=== PATIENT | male | born 1980 | race Caucasian/White ===

== ENCOUNTER 2017-06-30 08:45 | Emergency (ER) | payer BC ==
--- OUTSIDE RECORDS SUMMARY | 2017-06-30 08:48 | XMS REPORT | Clinical Summary ---
:1980 Author Organization [facility] Address [address] [place] [address] Care Team Providers Name Role Phone Jose Rafael Campbell MD Primary Care Provider Allergies Active Allergy Reactions Severity Noted Date Comments Clindamycin Rash Low 03/08/2017 Phytonadione (Vitamin K1) Swelling, Other (See Low 03/08/2017 tachycardia Comments) Current Medications Prescription Sig. Disp. Refills Start Date End Date Status riFAXimin (XIFAXAN) Take 550 mg by Active 550 mg tablet mouth 2 (two) times a day. ursodiol (ACTIGALL) Take 300 mg by Active 300 mg capsule mouth 2 (two) times a day. calcium carbonate Chew 1 tablet 2 Active (TUMS) 200 mg (two) times a calcium (500 mg) day as needed chewable tablet for indigestion or heartburn. furosemide (LASIX) Take 40 mg by Active 40 mg tablet mouth 2 (two) times a day. hydrOXYzine Take 25 mg by Active (ATARAX) 25 MG mouth every 6 tablet (six) hours as needed for itching. insulin ASPART Inject 15 Units Active protamine and under the skin 2 insulin ASPART (two) times a (NovoLOG Mix 70-30 day before FlexPen) 100 meals. unit/mL (70-30) insulin pen pantoprazole Take 40 mg by Active (PROTONIX) 40 MG EC mouth daily. tablet lactulose 10 Take 20 g by Active gram/15 mL (15 mL) mouth 2 (two) solution times a day. insulin lispro Inject 0-7 Units Active (HumaLOG) 100 under the skin 3 unit/mL injection (three) times a day before meals. Per sliding scale predniSONE Take 5 mg by Active (DELTASONE) 5 mg mouth daily. tablet pentoxifylline Take 400 mg by Active (TRENTal) 400 mg CR mouth 3 (three) tablet times a day with meals. spironolactone Take 200 mg by Active (ALDACTONE) 100 MG mouth daily. tablet cyanocobalamin Take 1,000 mcg 01/05/20 Discontinued (vitamin B-12) 1000 by mouth daily. 17 MCG tablet folic acid Take 400 mcg by 01/05/20 Discontinued (FOLVITE) 400 MCG mouth daily. 17 tablet spironolactone Take 25 mg by 01/05/20 Discontinued (ALDACTONE) 25 MG mouth 2 (two) 17 tablet times a day. spironolactone Take 1 tablet 60 tablet 0 01/04/2017 01/05/20 Discontinued (ALDACTONE) 25 MG (25 mg total) by 17 tablet mouth 2 (two) times a day for 30 days. As needed for swelling thiamine 100 MG Take 1 tablet 30 tablet 1 01/04/2017 01/05/20 Discontinued tablet (100 mg total) 17 by mouth daily for 30 days. lactulose 20 Take 15 mL (10 g 500 mL 3 01/04/2017 01/05/20 Discontinued gram/30 mL solution total) by mouth 17 3 (three) times a day as needed (CONFUSION) for up to 30 days. As needed to target 2 stools per day zinc sulfate Take 1 capsule 30 capsule 1 01/04/2017 02/04/20 (ZINCATE) 220 (50) (220 mg total) 17 mg capsule by mouth daily for 30 days. May use over the counter Zinc ciprofloxacin HCl Take 1 tablet 14 tablet 0 01/04/2017 01/12/20 (CIPRO) 500 MG (500 mg total) 17 tablet by mouth 2 (two) times a day for 7 days. folic acid Take 1 tablet 30 tablet 0 01/04/2017 02/04/20 (FOLVITE) 400 MCG (400 mcg total) 17 tablet by mouth daily for 30 days. May use OTC lactulose 20 Take 15 mL (10 g 500 mL 3 01/04/2017 02/04/20 gram/30 mL solution total) by mouth 17 3 (three) times a day as needed (CONFUSION) for up to 30 days. As needed to target 2 stools per day spironolactone Take 1 tablet 60 tablet 0 01/04/2017 02/04/20 (ALDACTONE) 25 MG (25 mg total) by 17 tablet mouth 2 (two) times a day for 30 days. As needed for swelling thiamine 100 MG Take 1 tablet 30 tablet 1 01/04/2017 02/04/20 tablet (100 mg total) 17 by mouth daily for 30 days. May use OTC cyanocobalamin Take 1 tablet 30 tablet 0 01/04/2017 02/04/20 (vitamin B-12) 1000 (1,000 mcg 17 MCG tablet total) by mouth daily for 30 days. May use OTC spironolactone Take 25 mg by 02/28/20 Discontinued (ALDACTONE) 25 MG mouth 2 (two) 17 tablet times a day. calcium carbonate Chew 1 tablet 02/27/2017 03/20/19 Discontinued (TUMS) 200 mg (500 mg total) 2 18 calcium (500 mg) (two) times a chewable tablet day as needed for heartburn for up to 30 days. hydrOXYzine Take 1 tablet 30 tablet 1 02/27/2017 03/20/19 Discontinued (ATARAX) 25 MG (25 mg total) by 18 tablet mouth every 6 (six) hours as needed for itching for up to 30 days. lactulose 20 Take 30 mL (20 g 1800 mL 0 02/27/2017 03/20/19 Discontinued gram/30 mL solution total) by mouth 18 2 (two) times a day for 30 days. pentoxifylline Take 1 tablet 90 tablet 0 02/27/2017 03/18/19 Discontinued (TRENTal) 400 mg CR (400 mg total) 18 tablet by mouth 3 (three) times a day with meals for 30 days. predniSONE Take 3 tablets 90 tablet 0 02/28/2017 03/18/19 Discontinued (DELTASONE) 20 mg (60 mg total) by 18 tablet mouth daily for 30 days. pantoprazole Take 1 tablet 30 tablet 0 02/27/2017 03/20/19 Discontinued (PROTONIX) 40 MG EC (40 mg total) by 18 tablet mouth daily for 30 days. white Apply topically 57 g 0 02/27/2017 02/28/20 Discontinued petrolatum-mineral as needed (dry, 17 oil (EUCERIN) cream itchy skin) for topical cream up to 30 days. (can buy from [id number] ) white Apply topically 57 g 0 02/27/2017 03/29/19 petrolatum-mineral as needed (dry, 18 oil (EUCERIN) cream itchy skin) for topical cream up to 30 days. (can buy from [id number] ) furosemide (LASIX) Take 40 mg by 03/18/19 Discontinued 40 mg tablet mouth daily. 18 spironolactone Take 100 mg by 03/18/19 Discontinued (ALDACTONE) 100 MG mouth daily. 18 tablet predniSONE Take 1 tablet (5 30 tablet 0 03/19/2017 03/20/19 Discontinued (DELTASONE) 5 mg mg total) by 18 tablet mouth daily for 30 days. pentoxifylline Take 1 tablet 90 tablet 0 03/18/2017 03/20/19 Discontinued (TRENTal) 400 mg CR (400 mg total) 18 tablet by mouth 3 (three) times a day with meals for 30 days. insulin NPH Inject 12 Units 10 mL 12 03/18/2017 03/18/19 Discontinued (HumuLIN-N) 100 under the skin 18 unit/mL injection nightly for 30 days. Hold dose for glucose < 90 insulin NPH Inject 20 Units 10 mL 12 03/18/2017 03/18/19 Discontinued (HumuLIN-N) 100 under the skin 18 unit/mL injection daily before breakfast for 30 days. Hold dose for glucose < 90 insulin lispro Inject 0-7 Units 10 mL 12 03/18/2017 03/20/19 Discontinued (HumaLOG) 100 under the skin 3 18 unit/mL injection (three) times a day with meals for 30 days. Follow sliding scale regimen furosemide (LASIX) Take 1 tablet 60 tablet 0 03/18/2017 03/20/19 Discontinued 40 mg tablet (40 mg total) by 18 mouth 2 (two) times a day for 30 days. spironolactone Take 2 tablets 60 tablet 0 03/19/2017 03/20/19 Discontinued (ALDACTONE) 100 MG (200 mg total) 18 tablet by mouth daily for 30 days. insulin 70/30 NPH Inject 15 units 10 mL 3 03/18/2017 03/18/19 Discontinued and regular human twice a with 18 (NovoLIN 70/30) 100 dinner. unit/mL (70-30) injection insulin Inject twice a 100 each 2 03/18/2017 03/20/19 Discontinued syringe-needle day. 18 U-100 (BD INSULIN SYRINGE ULTRA-FINE) 1 mL 31 gauge x 5/16 syringe traMADol (ULTRAM) Take 2 tablets 30 tablet 0 03/18/2017 04/17/19 50 mg tablet (100 mg total) 18 by mouth every 6 (six) hours as needed for moderate pain or severe pain for up to 30 days. insulin ASPART Inject 15 units 5 pen 1 03/18/2017 03/20/19 Discontinued protamine and with breakfast 18 insulin ASPART and 15 units (NovoLOG Mix 70-30 with dinner FlexPen) 100 unit/mL (70-30) insulin pen pen needle, Inject twice a 100 each 1 03/18/2017 03/20/19 Discontinued diabetic (PEN day 18 NEEDLE) 31 gauge x 5/16" needle Active Problems Problem Noted Date Bronchospasm 03/20/2017 Pre-diabetes 03/11/2017 Essential hypertension 03/11/2017 Hepatic encephalopathy 03/11/2017 Fluid overload 03/08/2017 Severe alcohol dependence 02/21/2017 Nicotine use disorder 02/21/2017 Marijuana use 02/21/2017 Hyperbilirubinemia 02/20/2017 Acute liver failure 02/20/2017 Alcoholic cirrhosis of liver with ascites 01/02/2017 Disorder of liver 01/02/2017 Encounters Date Type Specialty Care Team Description 05/23/2017 Hospital Radiology Jeanzhanna Eleazar Alcoholic cirrhosis of liver without ascites; Encounter MD Deisi Portal hypertension; Alcoholic hepatic failure without coma; Localized edema; Bleeding esophageal varices, unspecified esophageal varices type 05/21/2017 Procedure Pass Radiology 05/12/2017 Transcribe Orders Access LinoEleazar Alcoholic cirrhosis of liver without ascites (Primary Dx); MD Deisi Portal hypertension; Alcoholic hepatic failure without coma; Localized edema; Bleeding esophageal varices, unspecified esophageal varices type 03/20/2017 [facility] Internal Rambo Jennings Bronchospasm (Primary Dx); Encounter Medicine DO Mindy Bronchitis; Chente Taylor, Cirrhosis of liver without ascites, unspecified hepatic cirrhosis type; Fever, unspecified fever cause 03/08/2017 [facility], En[facility] Medicine MD Oliver 03/18/2017 Chente Taylor MD 02/19/2017 Hospital General Internal Aguilar Anderson Hyperbilirubinemia ( Primary Dx); - Encounter Medicine DO YUE Ricks abdominal pain; 02/27/2017 Stanley, Alcoholic cirrhosis of liver without ascites MD Gus Jeff Satishchandra, MD 02/14/2017 Hospital Radiology Eleazar Huynh Abnormality of alpha- fetoprotein; Encounter MD Deisi Alcoholic cirrhosis of liver without ascites 02/14/2017 Procedure Pass Radiology 02/14/2017 Transcribe Orders Radiology Alicia Socorro Abnormality of alpha- fetoprotein (Primary Dx); Alcoholic cirrhosis of liver without ascites 01/03/2017 Procedure Pass General Internal Medicine 01/02/2017 Emergency General Internal , Yessi-Te Cirrhosis of liver with - Medicine MD Daniel ascites, unspecified 01/04/2017 Gus, hepatic cirrhosis type MD Oliver (Primary Dx) after 06/29/2016 Social History Tobacco Use Types Packs/Day Years Used Date Current Some Day Smoker Cigarettes 0.5 Smokeless Tobacco: Current User Tobacco Cessation: Ready to Quit: Yes; Counseling Given: Yes Comments: patient verbalized he's trying to reduce it everyday Alcohol Use Drinks/Week oz/Week Comments No last drink was week before labor day Sex Assigned at Date Recorded Not on file Last Filed Vital Signs Vital Sign Reading Time Taken Blood Pressure 142/68 03/20/2017 4:05 PM [employer] Pulse 95 03/20/2017 4:05 PM [employer] Temperature 36.7 C (98.1 F) 03/20/2017 4:05 PM [employer] Respiratory Rate 18 03/20/2017 4:05 PM [employer] Oxygen Saturation 98% 03/20/2017 4:05 PM [employer] Inhaled Oxygen Concentration - - Weight 90.7 kg (200 lb) 05/23/2017 6:23 PM CDT Height 185.4 cm (6' 1") 05/23/2017 6:23 PM CDT Body Mass Index 26.39 05/23/2017 6:23 PM CDT Plan of Treatment Health Maintenance Due Date Last Done Comments INFLUENZA VACCINE 10/01/2017 Results MRI Abdomen W Wo Contrast (05/23/2017 6:44 PM)Only the most recent of3 resultswithin the time period is included. Specimen Performing Laboratory [facility] [address] [place] [address] Narrative EXAMINATION:MRI ABDOMEN W WO CONTRAST CLINICAL HISTORY:K70.30 Alcoholic cirrhosis of liver without ascites, K76.6 Portal hypertension, K70.30K76.6K70.40R60.0I85.01 TECHNIQUE: Multiplanar multisequence MR images of the abdomen were obtained pre - and post dynamic intravenous administration of Eovist.. COMPARISON:MRI abdomen, 02/14/2017 IMPRESSION: 1.Liver is heterogeneous in enhancement pattern related to fibrosis and chronic liver disease. The lesions of concern described previously are again noted. The 3.2 cm nodule just cranial to the gallbladder fossa demonstrates slight hypointensity on the 20 minute delayed images. It is stable in size from prior. Findings indicate a mixture of functioning and nonfunctioning hepatocytes. 2.The 3.6 cm nodule anterior to the gallbladder is stable in size, and image shows fairly uniform isointensity, as does the 3 cm nodule posterior to the gallbladder. No other discrete nodules are identified. 3.Evaluation of the other abdominal organs is limited, as Eovist is a hepatocyte specific contrast agent, indicated only for liver imaging. Within this limitation, bile ducts, pancreas, abdominal aorta, circumaortic left renal vein and kidneys demonstrates nothing unusual. 4.Small amount of layering sludge in the gallbladder, can be better assessed with ultrasound. 5.No free fluid in the abdomen. Upper normal periaortic lymph nodes are likely reactive. Mild mesenteric edema likely related to portal hypertension from the chronic liver disease. As well, the spleen is mildly enlarged, otherwise grossly unremarkable. 6.Visualized bones show no suspicious lesion. SUMMARY: The nodules described previously are all stable in size. The nodule superior to the gallbladder fossa contains a mixed of functioning and nonfunctioning hepatocytes, and is still considered LI-RADS 4, though the other nodules are now considered LI-RADS 3. [facility]-[id number] Procedure Note [facility], Radiology Results Incoming - 05/23/2017 9:08 PM CDT EXAMINATION: MRI ABDOMEN W WO CONTRAST CLINICAL HISTORY: K70.30 Alcoholic cirrhosis of liver without ascites, K76.6 Portal hypertension, K70.30 K76.6 K70.40 R60.0 I85.01 TECHNIQUE: Multiplanar multisequence MR images of the abdomen were obtained pre - and post dynamic intravenous administration of Eovist. . COMPARISON: MRI abdomen, 02/14/2017 IMPRESSION: 1. Liver is heterogeneous in enhancement pattern related to fibrosis and chronic liver disease. The lesions of concern described previously are again noted. The 3.2 cm nodule just cranial to the gallbladder fossa demonstrates slight hypointensity on the 20 minute delayed images. It is stable in size from prior. Findings indicate a mixture of functioning and nonfunctioning hepatocytes. 2. The 3.6 cm nodule anterior to the gallbladder is stable in size, and image shows fairly uniform isointensity, as does the 3 cm nodule posterior to the gallbladder. No other discrete nodules are identified. 3. Evaluation of the other abdominal organs is limited, as Eovist is a hepatocyte specific contrast agent, indicated only for liver imaging. Within this limitation, bile ducts, pancreas, abdominal aorta, circumaortic left renal vein and kidneys demonstrates nothing unusual. 4. Small amount of layering sludge in the gallbladder, can be better assessed with ultrasound. 5. No free fluid in the abdomen. Upper normal periaortic lymph nodes are likely reactive. Mild mesenteric edema likely related to portal hypertension from the chronic liver disease. As well, the spleen is mildly enlarged, otherwise grossly unremarkable. 6. Visualized bones show no suspicious lesion. SUMMARY: The nodules described previously are all stable in size. The nodule superior to the gallbladder fossa contains a mixed of functioning and nonfunctioning hepatocytes, and is still considered LI-RADS 4, though the other nodules are now considered LI-RADS 3. [facility]-[id number] POC glucose (03/20/2017 5:38 PM)Only the most recent of47 resultswithin the time period is included. Component Value Ref Range POC glucose 134 (H) 65 - 99 mg/dL Comment: [facility] Notified RN Meter ID: [id number] Drapery Cutter: Angie Allen Specimen Performing Laboratory [facility] DEPARTMENT OF PATHOLOGY AND GENOMIC MEDICINE [address] [place] [phone] XR Chest 1 Vw Portable (03/20/2017 3:22 PM)Only the most recent of2 resultswithin the time period is included. Specimen Performing Laboratory [facility] [address] [place] [address] Narrative EXAMINATION:XR CHEST 1 VW PORTABLE CLINICAL HISTORY:Cough COMPARISON:March 08, 2017 single view chest IMPRESSION: Unremarkable single view chest The lungs are clear. The heart is not enlarged. The bony structures are within normal limits. [id number] Procedure Note [facility], Radiology Results Incoming - 03/20/2017 3:27 PM [employer]ATE [employer] EXAMINATION: XR CHEST 1 VW PORTABLE CLINICAL HISTORY: Cough COMPARISON: March 08, 2017 single view chest IMPRESSION: Unremarkable single view chest The lungs are clear. The heart is not enlarged. The bony structures are within normal limits. [id number] Respiratory pathogen panel (03/20/2017 2:23 PM)Only the most recent of3 resultswithin the time period is included. Component Value Ref Range Respiratory pathogen panel Negative for all pathogens tested: Negative for Adenovirus Negative for Coronavirus HKU1 Negative for Coronavirus NL63 Negative for Coronavirus 229E Negative for Coronavirus OC43 Negative for Human Metapneumovirus Negative for Rhinovirus/Enterovirus Negative for Influenza A Negative for Influenza A/H1 Negative for Influenza A/H3 Negative for Influenza A/H1-2009 Negative for Influenza B Negative for Parainfluenza Virus 1 Negative for Parainfluenza Virus 2 Negative for Parainfluenza Virus 3 Negative for Parainfluenza Virus 4 Negative for Respiratory Syncytial Virus Negative for Bordetella pertussis Negative for Chlamydophila pneumoniae Negative for Mycoplasma pneumoniae This real-time PCR assay detects the presence of nucleic acids (RNA or DNA) for the respiratory pathogens listed. A result of "Not-detected" does not exclude the possibility of the presence of one or more pathogens at concentrations less than the detectable limits of the assay. Comment: Specimen Information Specimen Source: Nares Specimen Site: Left Specimen Performing Laboratory Nares - Left [facility] DEPARTMENT OF PATHOLOGY AND GENOMIC MEDICINE [address] [place] [id number] Estimated GFR (03/20/2017 2:23 PM)Only the most recent of24 resultswithin the time period is included. Component Value Ref Range GFR Non Af Amer >90 mL/min/1.73 m2 GFR Af Amer >90 mL/min/1.73 m2 Comment: Chronic kidney disease: <60 mL/min/1.73m2 Kidney failure: <15 mL/min/1.73m2 The estimated GFR is calculated from the IDMS-traceable Modification of Diet in Renal Disease Equation. The accuracy of the calculation is poor when the creatinine is normal. Calculated values >90 mL/min/1.73m2 are not reported. This equation has not been validated in children (<18 years), women, the elderly (>70 years), or ethnic groups other than Caucasians and Americans. Specimen Performing Laboratory Plasma specimen [facility] DEPARTMENT OF PATHOLOGY AND GENOMIC MEDICINE [address] [place] [id number] Partial thromboplastin time, activated (03/20/2017 2:23 PM)Only the most recent of2 resultswithin the time period is included. Component Value Ref Range PTT 46.4 (H) 23.0 - 36.0 sec Comment: PTT therapeutic range for unfractionated heparin is 61.0-112.0 seconds which corresponds to Anti-Xa 0.3-0.7 U/ml. Specimen Performing Laboratory Blood [facility] DEPARTMENT OF PATHOLOGY AND [facility] MEDICINE [address] [place] [phone] Prothrombin time with INR (03/20/2017 2:23 PM)Only the most recent of23 resultswithin the time period is included. Component Value Ref Range Prothrombin time 17.5 (H) 12.0 - 15.0 sec INR 1.4 Comment: The International Normalized Ratio (INR) is a therapeutic monitoring tool for patients who are stable on oral anticoagulant therapy. An INR of 2.0-3.0 is suggested for deep vein thrombosis/pulmonary embolism. Specimen Performing Laboratory Blood [facility] DEPARTMENT OF PATHOLOGY AND GENOMIC MEDICINE [address] [place] [phone] CBC with platelet and differential (03/20/2017 2:23 PM)Only the most recent of24 resultswithin the time period is included. Component Value Ref Range WBC 12.65 (H) 4.50 - 11.00 k/uL RBC 3.04 (L) 4.40 - 6.00 m/uL HGB 10.7 (L) 14.0 - 18.0 g/dL HCT 29.2 (L) 41.0 - 51.0 % MCV 96.1 82.0 - 100.0 fL MCH 35.2 (H) 27.0 - 34.0 pg MCHC 36.6 31.0 - 37.0 g/dL RDW - SD 68.2 (H) 37.0 - 55.0 fL MPV 9.8 8.8 - 13.2 fL Platelet count 101 (L) 150 - 400 k/uL Nucleated RBC 0.00 /100 WBC Neutrophils 70.9 (H) 39.0 - 69.0 % Lymphocytes 15.8 (L) 25.0 - 45.0 % Monocytes 10.0 0.0 - 10.0 % Eosinophils 2.5 0.0 - 5.0 % Basophils 0.3 0.0 - 1.0 % Immature granulocytes 0.5Comment: "Immature granulocytes" 0.0 - 1.0 % (promyelocytes, myelocytes, metamyelocytes) Specimen Performing Laboratory Blood [facility] DEPARTMENT OF PATHOLOGY AND [facility] MEDICINE [address] [place] [phone] Influenza antigen (03/20/2017 2:23 PM) Component Value Ref Range Influenza antigen Negative for Influenza A/B antigen. Comment: Specimen Information Specimen Source: Nares Specimen Site: Left Specimen Performing Laboratory Nares - Left [facility] DEPARTMENT OF PATHOLOGY AND GENOMIC MEDICINE [address] [place] [phone] Lipase level (03/20/2017 2:23 PM)Only the most recent of3 resultswithin the time period is included. Component Value Ref Range Lipase 89 (H) 13 - 60 U/L Specimen Performing Laboratory Plasma specimen [facility] DEPARTMENT OF PATHOLOGY AND [address] [address] Alcohol level, blood (03/20/2017 2:23 PM)Only the most recent of5 resultswithin the time period is included. Component Value Ref Range Alcohol 21.7 mg/dL Comment: Normal None Detected Legal Intoxication in [place]80 mg/dL (0.08%) - Whole Blood Toxic [id number] mg/dL (0.2%) Potentially Hhyun207 - 500 mg/dL (0.35 - 0.5%) Alcohol percent 0.022 % Specimen Performing Laboratory Plasma specimen [facility] DEPARTMENT OF PATHOLOGY AND [facility] MEDICINE [address] [place] [phone] Comprehensive metabolic panel (03/20/2017 2:23 PM)Only the most recent of16 resultswithin the time period is included. Component Value Ref Range Sodium 133 (L) 135 - 148 mEq/L Potassium 3.5 3.5 - 5.0 mEq/L Chloride 92 (L) 98 - 112 mEq/L CO2 25 24 - 31 mEq/L Anion gap 16 (H) 7 - 15 mEq/L Comment: Starting from June , anion gap calculation no longer incorporates potassium. Please note the change. BUN 20 6 - 20 mg/dL Creatinine 0.9 0.7 - 1.2 mg/dL Glucose 175 (H) 65 - 99 mg/dL Calcium 10.2 8.3 - 10.2 mg/dL Protein 7.3 6.3 - 8.3 g/dL Comment: [place] 4.6-7.0 g/dL 1 week 4.4-7.6 g/dL 7 months-1year5.1-7.3 g/dL 1-2 years5.6-7.5 g/dL >3 years6.0-8.0 g/dL 18-150 6.3-8.3 g/dL Albumin 3.8 3.5 - 5.0 g/dL A/G ratio 1.1 0.7 - 3.8 Alkaline phosphatase 193 (H) 40 - 129 U/L AST 79 (H) 10 - 50 U/L ALT 72 (H) 5 - 50 U/L Total bilirubin 13.1 (H) 0.0 - 1.2 mg/dL Specimen Performing Laboratory Plasma specimen [facility] DEPARTMENT OF PATHOLOGY AND [facility] MEDICINE [address] [place] [phone] Blood culture, aerobic & anaerobic (03/20/2017 2:20 PM)Only the most recent of7 resultswithin the time period is included. Component Value Ref Range Blood culture isolate No growth after 5 days of incubation. Comment: Specimen Information Specimen Source: Blood Specimen Site: Forearm, right Specimen Performing Laboratory Blood - Forearm, right [facility] DEPARTMENT OF PATHOLOGY AND GENOMIC MEDICINE [address] [place] [id number] Manual differential (03/18/2017 7:52 AM)Only the most recent of4 resultswithin the time period is included. Component Value Ref Range Manual differential PERFORMED Neutrophils 67.0 39.0 - 69.0 % Lymphocytes 22.0 (L) 25.0 - 45.0 % Monocytes 7.0 0.0 - 10.0 % Eosinophils 4.0 0.0 - 5.0 % Basophils 0.0 0.0 - 1.0 % Metamyelocytes 0 % Promyelocytes 0 % Platelet slide review Decreased (A) Toxic granulation Slight Anisocytosis Moderate Polychromasia Moderate Target cells Moderate (A) Spherocytes Occasional Ovalocytes Moderate Specimen Performing Laboratory [facility] DEPARTMENT OF PATHOLOGY AND GENOMIC MEDICINE [address] [place] [phone] Phosphorus level (03/18/2017 4:00 AM)Only the most recent of15 resultswithin the time period is included. Component Value Ref Range Phosphorus 3.9 2.4 - 4.5 mg/dL Specimen Performing Laboratory Plasma specimen [facility] DEPARTMENT OF PATHOLOGY AND [facility] [address] [place] [id number] Magnesium level (03/18/2017 4:00 AM)Only the most recent of15 resultswithin the time period is included. Component Value Ref Range Magnesium 1.8 1.6 - 2.6 mg/dL Specimen Performing Laboratory Plasma specimen [facility] [place] [address] Smear review (03/17/2017 5:21 AM)Only the most recent of9 resultswithin the time period is included. Component Value Ref Range Platelet slide review Decreased (A) Anisocytosis Moderate Target cells Moderate (A) Spherocytes Occasional Toxic granulation Slight Specimen Performing Laboratory [facility] [place] [address] US Abdominal Limited (03/14/2017 3:45 PM)Only the most recent of3 resultswithin the time period is included. [place]imen [place] [address] Narrative EXAMINATION: US ABDOMINAL LIMITED CLINICAL HISTORY: rule out the presence of ascites COMPARISON: Limited abdominal ultrasound, obtained on 03/09/2017. TECHNIQUE: Multiple grayscale images were obtained of the abdomen to evaluate for ascites.. FINDINGS: Ascites was not discretely identified. IMPRESSION: No significant ascites. No significant change. [id number] Procedure Note Interface, Radiology Results Incoming - 03/14/2017 4:05 PM CORPORATE RECRUITER EXAMINATION: US ABDOMINAL LIMITED CLINICAL HISTORY: rule out the presence of ascites COMPARISON: Limited abdominal ultrasound, obtained on 03/09/2017. TECHNIQUE: Multiple grayscale images were obtained of the abdomen to evaluate for ascites.. FINDINGS: Ascites was not discretely identified. IMPRESSION: No significant ascites. No significant change. [id number] XR Abdomen 1 Vw (03/13/2017 5:48 PM) [place]imen [place] [address] Narrative EXAMINATION:XR ABDOMEN 1 VW CLINICAL HISTORY:ABDOMINAL PAIN, Distention, Vomiting COMPARISON:None. IMPRESSION: 1.A moderate amount stool is present within the colon possibly relating to constipation. 2.The bowel gas pattern is nonspecific. 3.There is no evidence for free intraperitoneal air. 4.Osseous structures are intact. [facility]-[id number] Procedure Note Hm Interface, Radiology Results Incoming - 03/13/2017 6:23 PM CORPORATE RECRUITER EXAMINATION: XR ABDOMEN 1 VW CLINICAL HISTORY: ABDOMINAL PAIN, Distention, Vomiting COMPARISON: None. IMPRESSION: 1. A moderate amount stool is present within the colon possibly relating to constipation. 2. The bowel gas pattern is nonspecific. 3. There is no evidence for free intraperitoneal air. 4. Osseous structures are intact. [facility]-[id number] Hemoglobin A1c (03/11/2017 5:05 AM) Component Value Ref Range Hemoglobin A1C 6.2 (H) 4.0 - 5.6 % Comment: HbA1c cutoffs for diagnosing diabetes: 4.0% - 5.6%=normal 5.7% - 6.4%=increased risk for diabetes (prediabetes) >=6.5%=diabetes Goals for glycemic control (ADA 2016) < 7.0%Target for non adults with diabetes. More or less stringent targets may be appropriate for individual patients. <7.5% Target for Children and adolescents with type 1 diabetes. Specimen Performing Laboratory [facility] DEPARTMENT OF PATHOLOGY AND GENOMIC MEDICINE [address] [place] [address] Hepatic function panel (03/11/2017 5:05 AM)Only the most recent of8 resultswithin the time period is included. Component Value Ref Range Albumin 3.9 3.5 - 5.0 g/dL Total bilirubin 14.5 (H) 0.0 - 1.2 mg/dL Bilirubin direct 8.8 (H) 0.0 - 0.3 mg/dL Alkaline phosphatase 270 (H) 40 - 129 U/L Protein 7.2 6.3 - 8.3 g/dL Comment: 4.6-7.0 g/dL 1 week 4.4-7.6 g/dL 7 months-1year5.1-7.3 g/dL 1-2 years5.6-7.5 g/dL >3 years6.0-8.0 g/dL 18-150 6.3-8.3 g/dL ALT 109 (H) 5 - 50 U/L AST 94 (H) 10 - 50 U/L Specimen Performing Laboratory Plasma specimen [facility] DEPARTMENT OF PATHOLOGY AND GENOMIC MEDICINE [address] [place] [address] Basic metabolic panel (03/11/2017 5:05 AM)Only the most recent of8 resultswithin the time period is included. Component Value Ref Range Sodium 140 135 - 148 mEq/L Potassium 3.8 3.5 - 5.0 mEq/L Chloride 96 (L) 98 - 112 mEq/L CO2 25 24 - 31 mEq/L Anion gap 19 (H) 7 - 15 mEq/L Comment: Starting from June , anion gap calculation no longer incorporates potassium. Please note the change. BUN 32 (H) 6 - 20 mg/dL Creatinine 1.1 0.7 - 1.2 mg/dL Glucose 286 (H) 65 - 99 mg/dL Calcium 9.3 8.3 - 10.2 mg/dL Specimen Performing Laboratory Plasma specimen [facility] DEPARTMENT OF PATHOLOGY AND GENOMIC MEDICINE [address] [place] [address] PV duplex venous lower extremity (03/10/2017 12:57 PM) Specimen Performing Laboratory [facility] [address] [place] [address] Narrative Vascular Ultrasound Laboratory Lower Extremity Venous Report [address] [place] [address] Pat.Name:Cheri VELEZ.ID:[id number] .Date: 03/10/2017 Refer.MD:OLIVER RICHARD MD Exam Time: 12:15:00 PM Study Type:LE Venous DOBAge:1980,36YSex: MALE Sonogrphr: Nataliia Winslow RDCS, RVT Pat. Stat.:Inpatient Room:[address] TapeVol: ED, CPT - 4: 16452 Echo Event ID:[id number] Order ID:[id number] Reason for Study:Edema History / Clinical:Liver cirrhosis, Ascites, Leg edema Race:C SUMMARY: DUPLEX SCAN OBSERVATIONS Deep VeinsSuperficial Veins RightLeft RightLeft GSV (prox) PulsatilePulsatile CFV Pulsatile Pulsatile (above knee) Femoral Pulsatile Pulsatile GSV (dist) Pulsatile Pulsatile Profunda Pulsatile Pulsatile (below knee) Popliteal Pulsatile Pulsatile PT (prox) Pulsatile PulsatileSSV Pulsatile Pulsatile PT (dist) Pulsatile Pulsatile Peroneal Pulsatile Pulsatile RIGHT:There is normal compressibility with no evidence of echogenic material noted within the lumen of the visualized veins. Colorflow and Doppler signals are pulsatile. LEFT: There is normal compressibility with no evidence of echogenic material noted within the lumen of the visualized veins. Colorflow and Doppler signals are pulsatile. PRELIMINARY FINDINGS 1. Normal venous duplex exam of the visualized veins. PHYSICIAN INTERPRETATION Venous examination of the both lower extremities demonstrated no evidence of venous thrombosis in the visualized veins. Volume overload. Signed 03/10/2017 07:20 PM Nicky Recinos MD, RPVI Procedure Note Interface, Radiology Results In - 03/10/2017 7:20 PM [facility] Vascular Ultrasound Laboratory Lower Extremity Venous Report [address] [place] [address] Pat.Name: PETER VELEZ Pat.ID: [id number] .Date: 03/10/2017 Refer.MD: OLIVER RICHARD MD Exam Time: 12:15:00 PM Study Type:LE Venous Age: 3 1980,36Y Sex: MALE Sonogrphr: Nataliia Winslow RDCS, RVT Pat. Stat.:Inpatient Room: [address] Vol: ED, CPT - 4: [address] Echo Event ID:[id number] Order ID: [id number] Reason for Study:Edema History / Clinical:Liver cirrhosis, Ascites, Leg edema Race: C SUMMARY: DUPLEX SCAN OBSERVATIONS Deep Veins Superficial Veins Right Left Right Left GSV (prox) Pulsatile Pulsatile CFV Pulsatile Pulsatile (above knee) Femoral Pulsatile Pulsatile GSV (dist) Pulsatile Pulsatile Profunda Pulsatile Pulsatile (below knee) Popliteal Pulsatile Pulsatile PT (prox) Pulsatile Pulsatile SSV Pulsatile Pulsatile PT (dist) Pulsatile Pulsatile Peroneal Pulsatile Pulsatile RIGHT: There is normal compressibility with no evidence of echogenic material noted within the lumen of the visualized veins. Colorflow and Doppler signals are pulsatile. LEFT: There is normal compressibility with no evidence of echogenic material noted within the lumen of the visualized veins. Colorflow and Doppler signals are pulsatile. PRELIMINARY FINDINGS 1. Normal venous duplex exam of the visualized veins. PHYSICIAN INTERPRETATION Venous examination of the both lower extremities demonstrated no evidence of venous thrombosis in the visualized veins. Volume overload. Signed 03/10/2017 07:20 PM Nicky Recinos MD, RPVI ECG 12 lead (03/08/2017 1:13 PM) Component Value Ref Range Ventricular rate 95 Atrial rate 95 KS interval 130 QRSD interval 88 QT interval 376 QTC interval 472 P axis 1 60 QRS axis 1 33 T wave axis 61 EKG impression Normal sinus rhythm-Cannot rule out Anterior infarct , age undetermined-Abnormal ECG-No previous ECGs available- Specimen Performing Laboratory [facility] MUSE [address] [place] [address] Urinalysis screen and microscopy, with reflex to culture (03/08/2017 11:36 AM) Only the most recent of3 resultswithin the time period is included. Component Value Ref Range Specimen site Clean catch Color, UA Patty Appearance, UA Clear Specific gravity, UA 1.023 1.001 - 1.035 pH, UA 5.0 5.0 - 8.5 Protein, UA Negative Negative Glucose, UA 3+ (A) Negative Ketones, UA Negative Negative Bilirubin, UA Positive@UBIL (A) Negative Blood, UA Small (A) Negative Nitrite, UA Negative Negative Urobilinogen, UA <2.0 <2.0 Leukocyte esterase, UA Negative Negative WBC, UA 2 (H) 0 - 1 /HPF RBC, UA 1 0 - 1 /HPF Bacteria, UA Few None seen Yeast, UA None seen Yeast with pseudohyphae, UA None seen Specimen Performing Laboratory Urine [facility] DEPARTMENT OF PATHOLOGY AND GENOMIC MEDICINE [address] [place] [address] Urine culture (03/08/2017 11:36 AM)Only the most recent of3 resultswithin the time period is included. Component Value Ref Range Urine culture SEE COMMENTComment: Bacteriuria screen negative. Specimen Performing Laboratory [facility] DEPARTMENT OF PATHOLOGY AND GENOMIC MEDICINE [address] [place] [address] XR Chest 2 Vw (02/24/2017 4:26 PM)Only the most recent of2 resultswithin the time period is included. Specimen Performing Laboratory [address] [address] Narrative Examination:XR CHEST 2 VW Clinical History: Fever Comparison: January 02, 2017 Technique: Frontal and lateral views of the chest Impression: No consolidation or pleural effusion. New or increased subtle reticulonodular prominence in the lung bases may be infectious such as bronchiolitis. The heart is normal in size. Bones are unremarkable. [id number] Procedure Note Interface, Radiology Results Incoming - 02/24/2017 4:32 PM CORPORATE RECRUITER Examination: XR CHEST 2 VW Clinical History: Fever Comparison: January 02, 2017 Technique: Frontal and lateral views of the chest Impression: No consolidation or pleural effusion. New or increased subtle reticulonodular prominence in the lung bases may be infectious such as bronchiolitis. The heart is normal in size. Bones are unremarkable. [id number] Vancomycin level, trough (02/21/2017 6:00 AM) Component Value Ref Range Vancomycin, trough 11.0 10.0 - 20.0 ug/mL Comment: Therapeutic Ranges: Peak 30.0 - 40.0 ug/mL Hcnvyu03.0 - 20.0 ug/mL Specimen Performing Laboratory Serum [facility] DEPARTMENT OF PATHOLOGY AND GENOMIC MEDICINE [address] [place] [address] Urine drugs of abuse screen (02/20/2017 8:05 PM)Only the most recent of2 resultswithin the time period is included. Component Value Ref Range Amphetamine screen, urine Negative Barbiturate screen, urine Negative Benzodiazepine screen, urine Negative Cannabinoid screen, urine Negative Cocaine screen, urine Negative Methadone metabolite (EDDP), urine Negative Opiates screen, urine Negative Oxycodone screen, urine Negative Phencyclidine screen, urine Negative Tricyclic screen, urine Negative Comment: Drug screen minimum concentration of detectability Xiviagnkqrbg9066 ng/mL Barbiturates 200 ng/mL Uurbcfazwprsqrk530 ng/mL Lqdrccv565 ng/mL Tzdcbbhmj728 ng/mL Ahqbvin987 ng/mL Nanisvkim501 ng/mL Phencyclidine 25 ng/mL Oqkthwdbajti26 ng/mL Scrqxckune3390 ng/mL Negative test results indicates presumptive evidence of lack of clinically significant drug concentration in this urine specimen. Positive test results are presumptive evidence of clinically significant drug concentration in this urine specimen. Testing performed for medical purposes only. Specimen Performing Laboratory Urine [facility] DEPARTMENT OF PATHOLOGY AND [facility] MEDICINE [address] [place] [address] GGT (02/20/2017 7:24 AM) Component Value Ref Range GGT 123 (H) 0 - 59 U/L Specimen Performing Laboratory Plasma specimen [facility] DEPARTMENT OF PATHOLOGY AND [address] [address] [address] Abdomen Pelvis W Contrast (02/20/2017 1:30 AM) Specimen Performing Laboratory [facility] [address] [place] [address] ABDOMEN PELVIS W CONTRAST CLINICAL INDICATION: RUQ abd painascitesjaundice TECHNIQUE:Multidetector CT imaging of the abdomen and pelvis was performed following the intravenous administration of iodinated contrast with multiplanar reconstructions.CT imaging was performed with iterative reconstruction technique and/or automated exposure control to reduce radiation dose. COMPARISON:MRI performed on 02/14/2017. FINDINGS: LOWER THORAX:Aside from mild bibasilar atelectasis, the lungs are clear. LIVER:There is heterogenous enhancement and nodular contour of the liver, compatible with cirrhosis. There is hepatomegaly. No focal hepatic lesions are identified on this exam, please refer to the recent abdominal MRI for description of the known hepatic nodules. BILIARY:There is nonspecific wall thickening of the gallbladder. There is no CT evidence of cholelithiasis. There is no abnormal biliary dilation. SPLEEN:Normal. PANCREAS:Normal. ADRENALS:Normal. KIDNEYS:No mass or hydronephrosis. GI:Large and small bowel are normal in caliber.There are no inflammatory changes.Appendix is visualized and appears normal. VASCULAR:There are splenic, gastric, and perirectal abdominal varices. There is a circumaortic left renal vein. LYMPH NODES:No enlarged lymph nodes in the abdomen or pelvis. PELVIS:The urinary bladder is decompressed, limiting evaluation. BONES:There are no acute osseous abnormalities. 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 OTHER:There is mild mesenteric edema without significant ascites. There is no pneumoperitoneum or intra-abdominal collection. IMPRESSION: 1. Cirrhosis and portal hypertension without ascites. 2. No focal hepatic lesions are identified on this exam, please refer to the recent abdominal MRI for description of the known hepatic nodules. 3. Nonspecific gallbladder wall thickening, without CT evidence of cholelithiasis. [facility]-[id number] Procedure Note [facility], Radiology Results Incoming - 02/20/2017 1:[address] ABDOMEN PELVIS W CONTRAST CLINICAL INDICATION: RUQ abd pain ascites jaundice TECHNIQUE: Multidetector CT imaging of the abdomen and pelvis was performed following the intravenous administration of iodinated contrast with multiplanar reconstructions. CT imaging was performed with iterative reconstruction technique and/or automated exposure control to reduce radiation dose. COMPARISON: MRI performed on 02/14/2017. FINDINGS: LOWER THORAX: Aside from mild bibasilar atelectasis, the lungs are clear. LIVER: There is heterogenous enhancement and nodular contour of the liver, compatible with cirrhosis. There is hepatomegaly. No focal hepatic lesions are identified on this exam, please refer to the recent abdominal MRI for description of the known hepatic nodules. BILIARY: There is nonspecific wall thickening of the gallbladder. There is no CT evidence of cholelithiasis. There is no abnormal biliary dilation. SPLEEN: Normal. PANCREAS: Normal. ADRENALS: Normal. KIDNEYS: No mass or hydronephrosis. GI: Large and small bowel are normal in caliber. There are no inflammatory changes. Appendix is visualized and appears normal. VASCULAR: There are splenic, gastric, and perirectal abdominal varices. There is a circumaortic left renal vein. LYMPH NODES: No enlarged lymph nodes in the abdomen or pelvis. PELVIS: The urinary bladder is decompressed, limiting evaluation. BONES: There are no acute osseous abnormalities. 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 OTHER: There is mild mesenteric edema without significant ascites. There is no pneumoperitoneum or intra-abdominal collection. IMPRESSION: 1. Cirrhosis and portal hypertension without ascites. 2. No focal hepatic lesions are identified on this exam, please refer to the recent abdominal MRI for description of the known hepatic nodules. 3. Nonspecific gallbladder wall thickening, without CT evidence of cholelithiasis. [facility]-[id number] Ammonia level (02/20/2017 1:13 AM) Component Value Ref Range Ammonia 43 16 - 60 umol/L Specimen Performing Laboratory Blood [facility] DEPARTMENT OF PATHOLOGY AND GENOMIC MEDICINE [address] [place] [address], [place] [address] Lactic acid level (02/20/2017 1:10 AM)Only the most recent of5 resultswithin the time period is included. Component Value Ref Range Lactic acid 2.2 0.5 - 2.2 mmol/L Specimen Performing Laboratory Blood [facility] DEPARTMENT OF PATHOLOGY AND [facility] MEDICINE [address] [place] [address] Bilirubin direct (02/20/2017 1:10 AM) Component Value Ref Range Bilirubin direct >10.0 (H) 0.0 - 0.3 mg/dL Specimen Performing Laboratory Blood [facility] OF PATHOLOGY AND [address] [address] Amylase level (02/20/2017 1:10 AM) Component Value Ref Range Amylase 28 28 - 100 U/L Specimen Performing Laboratory Blood [facility] PATHOLOGY AND [address] [address] Alpha fetoprotein (01/04/2017 5:30 AM) Component Value Ref Range Alpha fetoprotein 7.6 0.0 - 8.3 ng/mL Comment: The Sharif 8000 AFP immunoassay was used. Results obtained with different assay methods or kits should not be used interchangeably and may be different. Specimen Performing Laboratory Serum [facility] DEPARTMENT OF PATHOLOGY AND [address] [address] [place] Abdominal Doppler (01/03/2017 12:43 AM) Specimen Performing Laboratory [facility] [address] [place] [address] Narrative EXAMINATION:US ABDOMINAL DOPPLER CLINICAL HISTORY:Suspected vascular insufficiency of the intestine TECHNIQUE: Grayscale, color Doppler analysis and spectral waveform analysis of the upper abdominal vasculature was performed COMPARISON:None. IMPRESSION: Main portal vein measures 1.1 cm. Main portal vein, left portal vein, and posterior portion of right portal vein are patent. Anterior portion of right portal vein could not be seen. Middle hepatic vein, left hepatic vein, and right hepatic vein demonstrate hepatofugal flow. Proper hepatic artery, left hepatic artery, and right hepatic artery demonstrate hepatopedal flow. Inferior vena cava is patent. Superior mesenteric vein could not be seen. Splenic artery and vein at the spleen are patent. Splenic artery and vein at the midline could not be seen. [facility]-[id number] Procedure Note Interface, Radiology Results Incoming - 01/03/2017 1:34 AM CDT EXAMINATION: US ABDOMINAL DOPPLER CLINICAL HISTORY: Suspected vascular insufficiency of the intestine TECHNIQUE: Grayscale, color Doppler analysis and spectral waveform analysis of the upper abdominal vasculature was performed COMPARISON: None. IMPRESSION: Main portal vein measures 1.1 cm. Main portal vein, left portal vein, and posterior portion of right portal vein are patent. Anterior portion of right portal vein could not be seen. Middle hepatic vein, left hepatic vein, and right hepatic vein demonstrate hepatofugal flow. Proper hepatic artery, left hepatic artery, and right hepatic artery demonstrate hepatopedal flow. Inferior vena cava is patent. Superior mesenteric vein could not be seen. Splenic artery and vein at the spleen are patent. Splenic artery and vein at the midline could not be seen. [facility]-[id number] US Abdomen Complete (01/03/2017 12:42 AM) Specimen Performing Laboratory [facility] [address] [place] [address] Narrative EXAM: US ABDOMEN COMPLETE CLINICAL DATA:CIRRHOSIS COMPARISON: NONE. IMPRESSION: LIVER:Cirrhotic nodular contour of the liver is identified. No masses are seen on this limited assessment. If there is further clinical concern for a mass, CT liver mass protocol or MRI would be the exam of choice. MPV:Main portal vein measures 1.1 cm and demonstrates expected hepatopedal flow. GALLBLADDER:Gallbladder is contracted. Gallbladder wall thickening measuring 6 cm is seen, nonspecific in the setting of cirrhosis and contraction. No shadowing gallstones, sludge, or pericholecystic fluid. CBD:0.4 cm , within normal limits. PANCREAS:The visualized portions of the pancreas are within normal limits. SPLEEN:Spleen is enlarged measuring 13.6 cm in length. No masses are seen . RIGHT KIDNEY:Right kidney measures 12.6 x 5.2 x 6 cm. Cortex measures 1.5 cm. No masses, stones, or hydronephrosis. LEFT KIDNEY:Left kidney measures 14.6 x 4.8 x 7.3 cm. Cortex measures 1.8 cm. No masses, stones, or hydronephrosis. AORTA:Not visualized IVC:The visualized portions of the inferior vena cava are unremarkable. ASCITES: No abnormal abdominal fluid collections are visualized. There is no evidence of ascites. PLEURAL EFFUSION:There are no pleural effusions. [facility]-[id number] Procedure Note Interface, Radiology Results Incoming - 01/03/2017 1:24 AM CDT EXAM: US ABDOMEN COMPLETE CLINICAL DATA: CIRRHOSIS COMPARISON: NONE. IMPRESSION: LIVER: Cirrhotic nodular contour of the liver is identified. No masses are seen on this limited assessment. If there is further clinical concern for a mass , CT liver mass protocol or MRI would be the exam of choice. MPV: Main portal vein measures 1.1 cm and demonstrates expected hepatopedal flow. GALLBLADDER: Gallbladder is contracted. Gallbladder wall thickening measuring 6 cm is seen, nonspecific in the setting of cirrhosis and contraction. No shadowing gallstones, sludge, or pericholecystic fluid. CBD: 0.4 cm , within normal limits. PANCREAS: The visualized portions of the pancreas are within normal limits. SPLEEN: Spleen is enlarged measuring 13.6 cm in length. No masses are seen . RIGHT KIDNEY: Right kidney measures 12.6 x 5.2 x 6 cm. Cortex measures 1.5 cm. No masses, stones, or hydronephrosis. LEFT KIDNEY: Left kidney measures 14.6 x 4.8 x 7.3 cm. Cortex measures 1.8 cm. No masses, stones, or hydronephrosis. AORTA: Not visualized IVC: The visualized portions of the inferior vena cava are unremarkable. ASCITES: No abnormal abdominal fluid collections are visualized. There is no evidence of ascites. PLEURAL EFFUSION: There are no pleural effusions. [facility]-[id number] after 06/29/2016 Insurance Payer Benefit Plan / Group Subscriber ID Type Phone Address BCBS BCBS CHOICE PPO/[employer] EMPL PPO xxxxxxxxxxxx PPO Home: [facility]/[address] [place], [place] [phone] [place] [id number]
[2017-06-30 09:41] LABS: Hematocrit 29.8 % (39.6-49.0); MCH 36.6 pg (27.0-35.0); MCV 101.4 fL (80-100); MPV 9.3 fL (7.6-11.3); RBC Red Blood Cell Count 2.94 M/uL (4.33-5.43)
[2017-06-30 09:47] LABS: Protime INR 2.6
[2017-06-30 09:48] LABS: Glucose Level 170 mg/dL (65-120); Lipase 51 U/L (22-51)
[2017-06-30 09:55] LABS: AST/SGOT 125 IU/L (10-42); Albumin 2.8 g/dL (3.2-5.5); Alkaline Phosphatase 186 IU/L (42-121); BUN Blood Urea Nitrogen 5 mg/dL (6-20)
[2017-06-30 10:00] LABS: Bicarbonate 26 mEq/L (21-31); Magnesium 1.5 mg/dL (1.8-2.5); Potassium 2.9 mEq/L (3.6-5.0); Sodium Level 128 mEq/L (135-145)
[2017-06-30 10:28] LABS: ALT/SGPT 37 IU/L (10-60); Protein, Total 6.6 g/dL (6.0-8.3)
[2017-06-30 10:31] LABS: Blood Morphology Comment NOTED (NOT SEEN); Macrocytosis 1+; Platelet Estimate ADEQ; Platelets, Giant FEW; Target Cells FEW
[2017-06-30 10:34] LABS: Bilirubin Direct 14.6 mg/dL (0-0.2)
[2017-06-30 10:36] LABS: Bilirubin Total 25.2 mg/dL (0.3-1.2)
[2017-06-30] MEDS ORDERED: POTASSIUM 25 MEQ EFFERV TAB ONE (10:51)
[2017-06-30] MEDS ORDERED: FUROSEMIDE 40 MG/4 ML VIAL ONE (10:51)
[2017-06-30] MEDS ORDERED: FENTANYL CITR 100 MCG/2 ML ONE (10:51)
[2017-06-30] MEDS ORDERED: ONDANSETRON 4 MG/2 ML VIAL ONE ×2 (10:51→13:42)
[2017-06-30] MEDS ORDERED: Magnesium Sulfate 2gm IVPB 2 G/50 ML BAG IV ONE (10:51)
[2017-06-30] MEDS ORDERED: POTASSIUM CL SA 10 MEQ TAB PO ONE (10:52)
[2017-06-30 11:10] LABS: Urine Blood NEGATIVE (NEG); Urine Glucose NEGATIVE (NEG); Urine Protein NEGATIVE (NEG); Urine Specific Gravity <1.005 (1.005-1.030)
--- NOTE | 2017-06-30 11:35 | RAD REPORT ---
EXAM DESCRIPTION: CT - Abdomen Pelvis W Contrast - 06/30/2017 11:17 am CLINICAL HISTORY: Abdominal pain/liver failure 1 COMPARISON: November 2016 MRI TECHNIQUE: Computed axial tomography of the abdomen pelvis was obtained. 100 cc Isovue-300 was admin istered intravenously. Oral contrast was not requested which limits evaluation of bowel. All CT scans are performed using dose optimization technique as appropriate and may include automated exposure control or mA/KV adjustment according to patient size. FINDINGS: The liver has a mildly mottled appearance. This may be secondary to passive venous congest ion. A cirrhotic liver is present. The liver is enlarged. The portal vein appears patent. The spleen is mildly enlarged. Varices are present. The biliary tree is not dilated. The pancreas, adrenals and kidneys demonstrate no significant abnormality. There is no evidence of diverticulitis. The appendix is normal. A small amount of ascites is present. Gallbladder wall thickening may be related to hypoalbuminemia. IMPRESSION: Cirrhosis and hepatomegaly Mild splenomegaly with varices and a small amount of ascites The biliary tree is not dilated
[2017-06-30] MEDS ORDERED: PIPER/TAZO/NS 3.375gm 0 GM/0 ML BAG ONE (12:36)
[2017-06-30] MEDS ORDERED: PIPER/TAZO/NS 3.375gm 3.375 GM/100 ML BAG IV ONE (12:45)
--- NOTE | 2017-06-30 13:49 | ER ---
Nurse's Notes [facility] Name: Peter Andrade Age: 36 yrs Sex: Male : 1980 Arrival Date: 06/30/2017 Time: 08:48 Bed 14 Private MD: Diagnosis: Alcoholic cirrhosis of liver with ascites;Acute liver failure ;Hypomagnesemia;Elevated white blood cell count, unspecified Presentation: 06/30 08:49 Presenting complaint: states: Home BGL 195, abdominal pain, and SOB x 2 days. hb Transition of care: patient was not received from another setting of care. Onset of symptoms was June 30, 2017. Initial Sepsis Screen: Does the patient meet any 2 criteria? No. Patient's initial sepsis screen is negative. Does the patient have a suspected source of infection? No. Patient's initial sepsis screen is negative. Care prior to arrival: None. 08:49 Method Of Arrival: Wheelchair hb 08:49 Acuity: MARY 3 hb Historical: - Allergies: 08:51 Clindamycin; hb 08:51 vitamin K; hb - Home Meds: 08:51 Lactulose Oral [Active]; Lasix 40 mg Oral tab 1 tab once daily [Active]; pantoprazole hb 40 mg Oral TbEC 1 tab once daily [Active]; pentoxifylline 400 mg Oral TbER 1 tab 2 times per day [Active]; prednisone 20 mg Oral tab 1 tab once daily [Active]; spironolactone 100 mg Oral tab 1 tab once daily [Active]; urisodil 300 mg twice a day [Active]; Xifaxan 550 mg Oral tab 1 tab 2 times per day [Active]; - PMHx: 08:51 Cirrhosis; etoh abuse; hyperbilirubinemia; liver failure; hb - Immunization history:: Adult Immunizations up to date. - Social history:: Smoking status: Patient uses tobacco products, smokes one-half pack cigarettes per day. Screenin:32 Abuse screen: Denies threats or abuse. Denies injuries from another. Nutritional ph screening: No deficits noted. Tuberculosis screening: No symptoms or risk factors identified. Fall Risk None identified. Assessment: 09:32 General: Appears in no apparent distress. uncomfortable, slender, Behavior is calm, ph cooperative, appropriate for age, Denies fever, feeling ill. Pain: Complains of pain in "all over". Neuro: Level of Consciousness is awake, alert, obeys commands, Oriented to person, place, time, situation. Cardiovascular: Capillary refill Patient's skin is warm and dry. Respiratory: Reports shortness of breath at rest Airway is patent Respiratory effort is even, unlabored, Denies cough. GI: Reports lower abdominal pain, upper abdominal pain, nausea, Patient currently denies diarrhea, vomiting. Derm: Skin is intact, Skin is dry, Skin is jaundiced, Skin temperature is warm. Musculoskeletal: Circulation, motion, and sensation intact. Range of motion: intact in all extremities. 10:36 Reassessment: Critical lab values, K+ 2.[address] Underwood and SENDY Tamayo notified. 11:30 Reassessment: Patient appears in no apparent distress at this time. Patient and/or ph family updated on plan of care and expected duration. Pain level reassessed. Patient is alert, oriented x 3, equal unlabored respirations, skin warm/dry/pink. Pt reports that pain has improved to 4/10 and denies nausea at this time, awaiting CT results, mother at bedside. 12:30 Reassessment: Patient appears in no apparent distress at this time. Patient and/or ph family updated on plan of care and expected duration. Pain level reassessed. Patient is alert, oriented x 3, equal unlabored respirations, skin warm/dry/pink. 13:30 Reassessment: Patient appears in no apparent distress at this time. Patient and/or ph family updated on plan of care and expected duration. Pain level reassessed. Patient is alert, oriented x 3, equal unlabored respirations, skin warm/dry/pink. ERP at bedside to speak w/ pt about being transferred to [place], pt states, " I just really can't right now. I have some things to take care of at home and I will take myself up there in a day or 2.". Vital Signs: 08:51 BP 137 / 75; Pulse 95; Resp 20; Temp 99.2(TE); Pulse Ox 97% on R/A; Weight 90.72 kg; hb Height 6 ft. 1 in. (185.42 cm); Pain 8/10; 09:37 BP 136 / 73; Pulse 94; Resp 18; Pulse Ox 96% on R/A; ph 10:30 BP 134 / 74; Pulse 89; Resp 16; Pulse Ox 97% on R/A; ph 11:54 BP 138 / 74; Pulse 91; Resp 18; Pulse Ox 97% on R/A; ph 12:53 BP 133 / 74; Pulse 91; Resp 18; Pulse Ox 96% on R/A; mh5 08:51 Body Mass Index 26.39 (90.72 kg, 185.42 cm) hb ED Course: 08:48 Patient arrived in ED. as 08:50 Triage completed. hb 08:51 Arm band placed on right wrist. hb 08:53 Zoila Phelps, RN is Primary Nurse. ph 08:55 Dov Alejandre PA is PHCP. jr8 08:55 River Underwood MD is Attending Physician. jr8 09:20 Initial lab(s) drawn, by me, sent to lab. Inserted saline lock: 20 gauge in right ph antecubital area, using aseptic technique. Blood collected. 09:30 Patient has correct armband on for positive identification. Bed in low position. Call ph light in reach. Pulse ox on. NIBP on. Warm blanket given. 10:16 Notified Nurse Practitioner and/or Physician Insole Coverer of a critical lab result(s), WBC aa5 20.4. 11:06 CT completed. Patient tolerated procedure well. Patient moved to CT via wheelchair. sj Patient moved back from CT. 11:17 CT Abd/Pelvis - W/Contrast In Process Unspecified. EDMS 14:34 No provider procedures requiring assistance completed. IV discontinued, intact, ph bleeding controlled, No redness/swelling at site. Pressure dressing applied. Administered Medications: 11:05 Drug: fentaNYL (PF) 50 mcg Route: IVP; Site: right antecubital; ph 11:30 Follow up: Response: Pain is decreased ph 11:05 Drug: Zofran 4 mg Route: IVP; Site: right antecubital; ph 11:30 Follow up: Response: No adverse reaction; Nausea is decreased ph 11:45 Drug: Lasix 40 mg Route: IVP; Site: right antecubital; ph 14:30 Follow up: Urine output 1100 ml; Response: No adverse reaction ph 11:52 Drug: Magnesium Sulfate 2 grams Route: IVPB; Infused Over: 2 hrs; Site: right ph antecubital; 14:00 Follow up: Response: No adverse reaction; IV Status: Completed infusion ph 11:52 Drug: Potassium Chloride 40 mEq Route: PO; ph 12:30 Follow up: Response: No adverse reaction ph 13:21 Drug: Zosyn 3.375 grams Route: IVPB; Infused Over: 60 mins; Site: right antecubital; ph 14:30 Follow up: Response: No adverse reaction; IV Status: Completed infusion ph 13:47 Drug: Zofran 4 mg Route: IVP; Site: right antecubital; aa5 14:30 Follow up: Response: No adverse reaction ph 13:48 Drug: fentaNYL (PF) 50 mcg Route: IVP; Site: right antecubital; aa5 14:30 Follow up: Response: No adverse reaction; Pain is decreased ph Point of Care Testing: Blood Glucose: 09:02 Blood Glucose: 167 mg/dL; mh5 Ranges: Output: 14:30 Urine: 1100ml; Total: 1100ml. ph Outcome: 14:34 Patient left the ED. ph 14:34 AMA AMA form signed ph 14:34 Condition: unchanged Signatures: Dispatcher [employer] Mami Soliz Amelia as Calderon, Audri, RN RN 5 Irene Magana RN RN ss Roszak, Josh, PA PA [facility] Zoila Phelps RN RN ph Baxter, Heather, RN RN hb Martinez, Maria [facility]
--- NOTE | 2017-06-30 13:49 | EDPHYS ---
Physician Documentation [facility] Name: Peter Andrade Age: 36 yrs Sex: Male : 1980 Arrival Date: 06/30/2017 Time: 08:48 Bed 14 Private MD: ED Physician River Underwood HPI: 06/30 09:59 This 36 yrs old Male presents to ER via Wheelchair with complaints of Blood jr8 Sugar Problem. 10:15 Patient with history of chronic liver disease with cirrhosis of liver. Stated that he jr8 has been feeling "odd". Off balance sensations. Glucose has had large fluctuations as well. Denies n/v/d. Complains of abdominal pain as well . Onset: The symptoms/episode began/occurred gradually, 2 day(s) ago. Severity of symptoms: At their worst the symptoms were moderate in the emergency department the symptoms are unchanged. It is unknown whether or not the patient has had similar symptoms in the past. The patient has not recently seen a physician. Historical: - Allergies: 08:51 Clindamycin; hb 08:51 vitamin K; hb - Home Meds: 08:51 Lactulose Oral [Active]; Lasix 40 mg Oral tab 1 tab once daily [Active]; pantoprazole hb 40 mg Oral TbEC 1 tab once daily [Active]; pentoxifylline 400 mg Oral TbER 1 tab 2 times per day [Active]; prednisone 20 mg Oral tab 1 tab once daily [Active]; spironolactone 100 mg Oral tab 1 tab once daily [Active]; urisodil 300 mg twice a day [Active]; Xifaxan 550 mg Oral tab 1 tab 2 times per day [Active]; - PMHx: 08:51 Cirrhosis; etoh abuse; hyperbilirubinemia; liver failure; hb - Immunization history:: Adult Immunizations up to date. - Social history:: Smoking status: Patient uses tobacco products, smokes one-half pack cigarettes per day. ROS: 10:15 Eyes: Negative for injury, pain, redness, and discharge, ENT: Negative for injury, jr8 pain, and discharge, Neck: Negative for injury, pain, and swelling, Cardiovascular: Negative for chest pain, palpitations, and edema, Respiratory: Negative for shortness of breath, cough, wheezing, and pleuritic chest pain, Back: Negative for injury and pain, MS/Extremity: Negative for injury and deformity, Skin: Negative for injury, rash, and discoloration. 10:15 Abdomen/GI: Positive for abdominal pain, Negative for nausea, vomiting, and diarrhea, anorexia, dysphagia, hematemesis, black/tarry stool, rectal pain, rectal bleeding, bowel incontinence, flatulence. 10:15 Neuro: Positive for dizziness, visual changes, weakness. Exam: 10:15 Head/Face: Normocephalic, atraumatic. ENT: Nares patent. No nasal discharge, no jr8 septal abnormalities noted. Tympanic membranes are normal and external auditory canals are clear. Oropharynx with no redness, swelling, or masses, exudates, or evidence of obstruction, uvula midline. Mucous membranes moist. Neck: Trachea midline, no thyromegaly or masses palpated, and no cervical lymphadenopathy. Supple, full range of motion without nuchal rigidity, or vertebral point tenderness. No Meningismus. Cardiovascular: Regular rate and rhythm with a normal S1 and S2. No gallops, murmurs, or rubs. Normal PMI, no JVD. No pulse deficits. Respiratory: Lungs have equal breath sounds bilaterally, clear to auscultation and percussion. No rales, rhonchi or wheezes noted. No increased work of breathing, no retractions or nasal flaring. Back: No spinal tenderness. No costovertebral tenderness. Full range of motion. Skin: Warm, dry with normal turgor. Normal color with no rashes, no lesions, and no evidence of cellulitis. MS/ Extremity: Pulses equal, no cyanosis. Neurovascular intact. Full, normal range of motion. Neuro: Awake and alert, GCS 15, oriented to person, place, time, and situation. Cranial nerves II-XII grossly intact. Motor strength 5/5 in all extremities. Sensory grossly intact. Cerebellar exam normal. Normal gait. 10:15 Eyes: Periorbital structures: appear normal, Pupils: equal, round, and reactive to light and accomodation, Extraocular movements: intact throughout, Conjunctiva: normal, Corneas: no acute changes, Sclera: icterus, is present, Anterior chamber: normal, Lids and lashes: appear normal. 10:15 Abdomen/GI: Inspection: distension, that is mild, Bowel sounds: active, all quadrants, Palpation: soft, in all quadrants, mild abdominal tenderness, in the abdomen diffusely, Indicators: McBurney's point is not tender, Hamm's sign is negative, Rovsing's sign is negative, Liver: tenderness, that is mild. Vital Signs: 08:51 BP 137 / 75; Pulse 95; Resp 20; Temp 99.2(TE); Pulse Ox 97% on R/A; Weight 90.72 kg; hb Height 6 ft. 1 in. (185.42 cm); Pain 8/10; 09:37 BP 136 / 73; Pulse 94; Resp 18; Pulse Ox 96% on R/A; ph 10:30 BP 134 / 74; Pulse 89; Resp 16; Pulse Ox 97% on R/A; ph 11:54 BP 138 / 74; Pulse 91; Resp 18; Pulse Ox 97% on R/A; ph 12:53 BP 133 / 74; Pulse 91; Resp 18; Pulse Ox 96% on R/A; mh5 08:51 Body Mass Index 26.39 (90.72 kg, 185.42 cm) hb MDM: 08:55 Patient medically screened. jr8 12:09 Data reviewed: vital signs, nurses notes, lab test result(s), radiologic studies, CT jr8 scan. Data interpreted: Pulse oximetry: on room air is 97 %. Interpretation: normal. Counseling: I had a detailed discussion with the patient and/or guardian regarding: the historical points, exam findings, and any diagnostic results supporting the discharge/admit diagnosis, lab results, radiology results, the need to transfer to another facility. ED course: Patient has a MELD score of 33. Counseled patient on labs and score. Up to 68% mortality rate in next 90 days. That we need to transfer patient to [facility] for further evaluation of hepatic failure. That his tBili when compared a few months ago have essentially doubled. Patient understood but requests to go home at this time and then will go to [facility] later this week. Stated that he has a lot of important things he must do today. Patient alert and oriented to person, place, time, event. No acute distress. No altered mentation. I and family reiterated to patient that he has an extremely high MELD score and that his liver is not functioning like it has been in the past. That treatment needs to be done sooner and not later. Patient still wants to go home at this time . 13:44 ED course: Patient still wanting to go home after reassessing him. Will come back if jr8 worse . 06/30 09:14 Order name: Basic Metabolic Panel; Complete Time: 10:44 06/30 09:14 Order name: CBC with Diff; Complete Time: 10:32 8 06/30 09:14 Order name: Creatinine for Radiology; Complete Time: 10:32 06/30 09:14 Order name: Hepatic Function; Complete Time: 10:44 06/30 09:14 Order name: Lipase; Complete Time: 10:44 06/30 09:14 Order name: Protime (+inr); Complete Time: 10:06/30 09:14 Order name: Ptt, Activated; Complete Time: 10:06/30 09:14 Order name: AMMONIA; Complete Time: 10:07 06/30 09:14 Order name: Magnesium; Complete Time: 10:44 [facility] 06/30 10:16 Order name: Manual Differential; Complete Time: 10:32 EDMS 06/30 10:21 Order name: Blood Culture Adult (2) 06/30 10:21 Order name: Lactate; Complete Time: 11:36 [facility] 06/30 10:48 Order name: CT Abd/Pelvis - W/Contrast; Complete Time: 11:36 06/30 11:02 Order name: Urine Dipstick--Ancillary (enter results); Complete Time: 11:15 bd 06/30 09:14 Order name: IV Saline Lock; Complete Time: 09:29 06/30 09:14 Order name: Labs collected and sent; Complete Time: 09:29 06/30 09:14 Order name: Urine Dipstick-Ancillary (obtain specimen); Complete Time: 11:53 jr8 Administered Medications: 11:05 Drug: fentaNYL (PF) 50 mcg Route: IVP; Site: right antecubital; ph 11:30 Follow up: Response: Pain is decreased ph 11:05 Drug: Zofran 4 mg Route: IVP; Site: right antecubital; ph 11:30 Follow up: Response: No adverse reaction; Nausea is decreased ph 11:45 Drug: Lasix 40 mg Route: IVP; Site: right antecubital; ph 14:30 Follow up: Urine output 1100 ml; Response: No adverse reaction ph 11:52 Drug: Magnesium Sulfate 2 grams Route: IVPB; Infused Over: 2 hrs; Site: right ph antecubital; 14:00 Follow up: Response: No adverse reaction; IV Status: Completed infusion ph 11:52 Drug: Potassium Chloride 40 mEq Route: PO; ph 12:30 Follow up: Response: No adverse reaction ph 13:21 Drug: Zosyn 3.375 grams Route: IVPB; Infused Over: 60 mins; Site: right antecubital; ph 14:30 Follow up: Response: No adverse reaction; IV Status: Completed infusion ph 13:47 Drug: Zofran 4 mg Route: IVP; Site: right antecubital; aa5 14:30 Follow up: Response: No adverse reaction ph 13:48 Drug: fentaNYL (PF) 50 mcg Route: IVP; Site: right antecubital; aa5 14:30 Follow up: Response: No adverse reaction; Pain is decreased ph Point of Care Testing: Blood Glucose: 09:02 Blood Glucose: 167 mg/dL; mh5 Ranges: Critical Glucose Levels:Adult <50 mg/dl or >400 mg/dl <40 mg/dl or >180 mg/dl Disposition: 06/30/17 13:49 Patient has left against medical advice. Impression: Alcoholic cirrhosis of liver with ascites, Acute liver failure , Hypomagnesemia, Elevated white blood cell count, unspecified. - Patients states they are going to Home. - Condition is Fair. - Discharge Instructions: Ascites, Hypomagnesemia, Alcoholic Liver Disease, [id number]. Follow up: Private Physician; When: Tomorrow; Reason: Recheck today's complaints, Continuance of care, Re-evaluation by your physician. - Problem is an acute exacerbation. - Symptoms are unchanged. Addendum: 07/04/2017 19:09 Co-signature as Attending Physician, River Underwood MD. g s Signatures: Dispatcher [employer] Renae Franks RN RN aa5 Dov Alejandre PA PA jr8 Zoila Phelps RN RN Meagan Patten RN RN River Underwood MD MD Corrections: (The following items were deleted from the chart) 06/30 14:34 13:49 06/30/2017 13:49 Patients has left against medical advice. Impression: Alcoholic ph cirrhosis of liver with ascites; Acute liver failure ; Hypomagnesemia; Elevated white blood cell count, unspecified. Patient states they are going to Home. Condition is Fair. Follow up: Private Physician; When: Tomorrow; Reason: Recheck today's complaints, Continuance of care, Re-evaluation by your physician. Problem is an acute exacerbation. Symptoms are unchanged. jr8
[2017-06-30 14:45] VITALS: TEMP 99.2
[2017-06-30 14:49] VITALS: BP 133/74; O2SAT 96
== END 2017-06-30 14:34 | disposition left against medical advice (07) ==
LOC: ER 08:45
DX: K70.31 Alcoholic cirrhosis of liver with ascites (principal); K72.00 Acute and subacute hepatic failure without coma; E83.42 Hypomagnesemia; D72.829 Elevated white blood cell count, unspecified; F17.210 Nicotine dependence, cigarettes, uncomplicated; Z88.3 Allergy status to other anti-infective agents; Z91.048 Other nonmedicinal substance allergy status
CPT/HCPCS: 36415; 74177; 80048; 80076; 81003; 82140; 82962; 83605; 83690; 83735; 85025; 85610; 85730; 87040; 96365; 96366; 96375; 99284; J2405; J2543; J3010; J3475; Q9967

== ENCOUNTER 2017-07-03 03:49 | Emergency (ER) | payer BC ==
--- OUTSIDE RECORDS SUMMARY | 2017-07-03 03:51 | XMS REPORT | Clinical Summary ---
:1980 Author Organization [facility] Address [address] [place] [address] Care Team Providers Name Role Phone Jose [...] up to 30 days. (can buy from [facility] ) white Apply topically 57 g 0 02/27/2017 03/29/19 petrolatum-mineral as needed (dry, 18 oil (EUCERIN) cream itchy skin) for topical cream up to 30 days. (can buy from unxz-yye-jkotsdv ) furosemide (LASIX) Take 40 mg by [...] Specialty Care Team Description 05/23/2017 Hospital Radiology Eleazar Huynh Alcoholic cirrhosis of liver without ascites; Encounter MD Deisi Portal hypertension; Alcoholic hepatic failure without coma; Localized edema; Bleeding esophageal varices, unspecified esophageal varices type 05/21/2017 Procedure Pass Radiology 05/12/2017 Transcribe Orders Access Eleazar Huynh Alcoholic cirrhosis of liver without ascites (Primary Dx); MD Deisi Portal hypertension; Alcoholic hepatic failure without coma; Localized edema; Bleeding esophageal varices, unspecified esophageal varices type 03/20/2017 [facility] Rambo Jennings Bronchospasm (Primary Dx); Encounter Medicine DO Mindy Bronchitis; Chente Taylor, Cirrhosis of liver without ascites, unspecified hepatic cirrhosis type; Fever, unspecified fever cause 03/08/2017 [facility] - En[facility] Medicine MD Oliver 03/18/2017 Chente Taylor MD 02/19/2017 [facility] General Internal Aguilar Anderson Hyperbilirubinemia ( Primary Dx); - Encounter Medicine DO YUE Ricks abdominal pain; 02/27/2017 Stanley, Alcoholic cirrhosis of liver without ascites MD Gus Jeff Satishchandra, MD 02/14/2017 [facility] Radiology Eleazar Huynh Abnormality of alpha- fetoprotein; Encounter MD Deisi Alcoholic cirrhosis of liver without ascites 02/14/2017 Procedure Pass Radiology 02/14/2017 Transcribe Orders Radiology Alicia Socorro Abnormality of alpha- fetoprotein (Primary Dx); Alcoholic cirrhosis of liver without ascites 01/03/2017 Procedure Pass General Internal Medicine 01/02/2017 Emergency General Internal , Yen-Te Cirrhosis of liver with - Medicine MD Daniel ascites, unspecified 01/04/2017 Gus, hepatic cirrhosis type MD Oliver (Primary Dx) after 2016 Social History Tobacco Use Types Packs/Day Years [...] Taken Blood Pressure 142/68 03/20/2017 4:05 PM [employer] Pulse 95 03/20/2017 4:05 PM [employer] Temperature 36.7 C (98.1 F) 03/20/2017 4:05 PM [employer] Respiratory Rate 18 03/20/2017 4:05 PM [employer] Oxygen Saturation 98% 03/20/2017 4:05 PM [employer] Inhaled Oxygen Concentration - - Weight 90.7 [...] time period is included. Specimen Performing Laboratory [facility] [address] [place] [address] Narrative EXAMINATION:MRI ABDOMEN W WO CONTRAST CLINICAL [...] other nodules are now considered LI-RADS 3. [facility]-[id number] Procedure Note [facility], Radiology Results Incoming - 05/23/2017 9:08 PM [...] other nodules are now considered LI-RADS 3. [facility]-[id number] POC glucose (03/20/2017 5:38 PM)Only the most recent of47 resultswithin the time period is included. Component Value Ref Range POC glucose 134 (H) 65 - 99 mg/dL Comment: [facility] Notified RN Meter ID: [id number] Kineseologist: Angie Allen Specimen Performing Laboratory [facility] DEPARTMENT OF PATHOLOGY AND GENOMIC MEDICINE [address] [place] [address] XR Chest 1 Vw Portable (03/20/2017 3:22 PM)Only the most recent of2 resultswithin the time period is included. Specimen [facility] [address] [place] [address] Narrative EXAMINATION:XR CHEST 1 VW PORTABLE CLINICAL HISTORY:Cough COMPARISON:March 08, 2017 single view chest IMPRESSION: Unremarkable single view chest The lungs are clear. The heart is not enlarged. The bony structures are within normal limits. [id number] Procedure Note Hm Interface, Radiology Results Incoming - 03/20/2017 3:27 PM [employer] EXAMINATION: XR CHEST 1 VW PORTABLE CLINICAL HISTORY: Cough COMPARISON: March 08, 2017 single view chest IMPRESSION: Unremarkable single view chest The lungs are clear. The heart is not enlarged. The bony structures are within normal limits. [id number] Respiratory pathogen panel (03/20/2017 2:23 PM)Only the [...] Left Specimen Performing Laboratory Nares - Left [facility] DEPARTMENT OF PATHOLOGY AND GENOMIC MEDICINE [address] [place] [address] Estimated GFR (03/20/2017 2:23 PM)Only the most [...] and Americans. Specimen Performing Laboratory Plasma specimen [facility] DEPARTMENT OF PATHOLOGY AND GENOMIC MEDICINE [address] [place] [address] Partial thromboplastin time, activated (03/20/2017 2:23 PM)Only the most recent of2 resultswithin the time period is included. Component Value Ref Range PTT 46.4 (H) 23.0 - 36.0 sec Comment: PTT therapeutic range for unfractionated heparin is 61.0-112.0 seconds which corresponds to Anti-Xa 0.3-0.7 U/ml. Specimen Performing Laboratory Blood [facility] DEPARTMENT OF PATHOLOGY AND GENOMIC MEDICINE [address] [place] [address] Prothrombin time with INR (03/20/2017 2:23 PM)Only [...] vein thrombosis/pulmonary embolism. Specimen Performing Laboratory Blood [facility] DEPARTMENT OF PATHOLOGY AND GENOMIC MEDICINE [address] [place] [address] CBC with platelet and differential (03/20/2017 2:23 [...] (promyelocytes, myelocytes, metamyelocytes) Specimen Performing Laboratory Blood [facility] DEPARTMENT OF PATHOLOGY AND GENOMIC MEDICINE [address] [place] [address] Influenza antigen (03/20/2017 2:23 PM) Component Value Ref Range Influenza antigen Negative for Influenza A/B antigen. Comment: Specimen Information Specimen Source: Nares Specimen Site: Left Specimen Performing Laboratory Nares - Left [facility] DEPARTMENT OF PATHOLOGY AND GENOMIC MEDICINE [address] [place] [address] Lipase level (03/20/2017 2:23 PM)Only the most recent of3 resultswithin the time period is included. Component Value Ref Range Lipase 89 (H) 13 - 60 U/L Specimen Performing Laboratory Plasma specimen [facility] OF PATHOLOGY AND [address] [address] Alcohol level, blood (03/20/2017 2:23 PM)Only the most recent of5 resultswithin the time period is included. Component Value Ref Range Alcohol 21.7 mg/dL Comment: Normal None Detected Legal Intoxication in [place]80 mg/dL (0.08%) - Whole Blood Toxic Nycgggtchiwvo432 mg/dL (0.2%) Potentially Gqsoe508 - 500 mg/dL (0.35 - 0.5%) Alcohol percent 0.022 % Specimen Performing Laboratory Plasma specimen [facility] DEPARTMENT OF PATHOLOGY AND [address] [address] Comprehensive metabolic panel (03/20/2017 2:23 PM)Only the [...] Protein 7.3 6.3 - 8.3 g/dL Comment: 4.6-7.0 g/dL [...] 1.2 mg/dL Specimen Performing Laboratory Plasma specimen [facility] DEPARTMENT OF PATHOLOGY AND GENOMIC MEDICINE [address] [place] [address] Blood culture, aerobic & anaerobic (03/20/2017 2:20 PM)Only the most recent of7 resultswithin the time period is included. Component Value Ref Range Blood culture isolate No growth after 5 days of incubation. Comment: Specimen Information Specimen Source: Blood Specimen Site: Forearm, right Specimen Performing Laboratory Blood - Forearm, right [facility] DEPARTMENT OF PATHOLOGY AND GENOMIC MEDICINE [address] [place] [address] Manual differential (03/18/2017 7:52 AM)Only the most [...] Spherocytes Occasional Ovalocytes Moderate Specimen Performing Laboratory [facility] DEPARTMENT OF PATHOLOGY AND GENOMIC MEDICINE [address] [place] [address] Phosphorus level (03/18/2017 4:00 AM)Only the most recent of15 resultswithin the time period is included. Component Value Ref Range Phosphorus 3.9 2.4 - 4.5 mg/dL Specimen Performing Laboratory Plasma specimen [facility] DEPARTMENT OF PATHOLOGY AND GENOMIC MEDICINE [address] [place] [address] Magnesium level (03/18/2017 4:00 AM)Only the most recent of15 resultswithin the time period is included. Component Value Ref Range Magnesium 1.8 1.6 - 2.6 mg/dL Specimen Performing Laboratory Plasma specimen [facility] DEPARTMENT OF PATHOLOGY AND [address] [address] Smear review (03/17/2017 5:21 AM)Only the most recent of9 resultswithin the time period is included. Component Value Ref Range Platelet slide review Decreased (A) Anisocytosis Moderate Target cells Moderate (A) Spherocytes Occasional Toxic granulation Slight Specimen Performing Laboratory [facility] DEPARTMENT OF PATHOLOGY AND [address] [address] US Abdominal Limited (03/14/2017 3:45 PM)Only the most recent of3 resultswithin the time period is included. Specimen Performing Laboratory [address] [address] Narrative EXAMINATION: US ABDOMINAL LIMITED CLINICAL HISTORY: rule out the presence of ascites COMPARISON: Limited abdominal ultrasound, obtained on 03/09/2017. TECHNIQUE: Multiple grayscale images were obtained of the abdomen to evaluate for ascites.. FINDINGS: Ascites was not discretely identified. IMPRESSION: No significant ascites. No significant change. [facility]-[id number] Procedure Note [facility], Radiology Results Incoming - 03/14/2017 4:05 PM [employer] EXAMINATION: US ABDOMINAL LIMITED CLINICAL HISTORY: rule out the presence of ascites COMPARISON: Limited abdominal ultrasound, obtained on 03/09/2017. TECHNIQUE: Multiple grayscale images were obtained of the abdomen to evaluate for ascites.. FINDINGS: Ascites was not discretely identified. IMPRESSION: No significant ascites. No significant change. [id number] XR Abdomen 1 Vw (03/13/2017 5:48 PM) Specimen Performing Laboratory [address] [address] Narrative EXAMINATION:XR ABDOMEN 1 VW CLINICAL HISTORY:ABDOMINAL PAIN, Distention, Vomiting COMPARISON:None. IMPRESSION: 1.A moderate amount stool is present within the colon possibly relating to constipation. 2.The bowel gas pattern is nonspecific. 3.There is no evidence for free intraperitoneal air. 4.Osseous structures are intact. [facility]-[id number] Procedure Note [facility], Radiology Results Incoming - 03/13/2017 6:23 PM [employer] EXAMINATION: XR ABDOMEN 1 VW CLINICAL HISTORY: ABDOMINAL PAIN, Distention, Vomiting COMPARISON: None. IMPRESSION: 1. A moderate amount stool is present within the colon possibly relating to constipation. 2. The bowel gas pattern is nonspecific. 3. There is no evidence for free intraperitoneal air. 4. Osseous structures are intact. [facility]-[id number] Hemoglobin A1c (03/11/2017 5:05 AM) Component Value [...] with type 1 diabetes. Specimen Performing Laboratory [facility] DEPARTMENT OF PATHOLOGY AND GENOMIC MEDICINE [address] [place] [address] Hepatic function panel (03/11/2017 5:05 AM)Only the [...] 50 U/L Specimen Performing Laboratory Plasma specimen [facility] DEPARTMENT OF PATHOLOGY AND GENOMIC MEDICINE [address] [place] [address] Basic metabolic panel (03/11/2017 5:05 AM)Only the [...] 10.2 mg/dL Specimen Performing Laboratory Plasma specimen [facility] DEPARTMENT OF PATHOLOGY AND GENOMIC MEDICINE [address] [place] [address] PV duplex venous lower extremity (03/10/2017 12:57 PM) Specimen Performing Laboratory [facility] [address] [place] [address] Narrative Vascular Ultrasound Laboratory Lower Extremity Venous Report [address] [place] [address] Pat.Name:Cheri VELEZ.ID:[id number] .Date: 03/10/2017 Refer.MD:OLIVER RICHARD MD Exam Time: 12:15:00 PM Study Type:LE Venous DOBAge:1980,36YSex: MALE Sonogrphr: Nataliia Winslow RDCS, RVT Pat. Stat.:Inpatient Room:[address] TapeVol: ED, CPT - 4: 60404 Echo Event ID:[id number] Order ID:[id number] Reason for Study:Edema History / Clinical:Liver cirrhosis, [...] Radiology Results In - 03/10/2017 7:20 PM [facility] Vascular Ultrasound Laboratory Lower Extremity Venous Report [address] [place] [address] Pat.Name: PETER VELEZ Pat.ID: [id number] St.Date: 03/10/2017 Refer.MD: OLIVER RICHARD MD Exam Time: 12:15:00 PM Study Type:LE Venous Age: 3 1980,36Y Sex: MALE Sonogrphr: Nataliia Winslow RDCS, RVT Pat. Stat.:Inpatient Room: [address] Vol: ED, CPT - 4: [address]498 Echo Event ID:[id number] Order ID: [id number] Reason for Study:Edema History / Clinical:Liver cirrhosis, [...] Range Ventricular rate 95 Atrial rate 95 UT interval 130 QRSD interval 88 QT interval 376 QTC interval 472 P axis 1 60 QRS axis 1 33 T wave axis 61 EKG impression Normal sinus rhythm-Cannot rule out Anterior infarct , age undetermined-Abnormal ECG-No previous ECGs available- Specimen Performing Laboratory [facility] MUSE [address] [place] [address] Urinalysis screen and microscopy, with reflex to [...] UA None seen Specimen Performing Laboratory Urine [facility] DEPARTMENT OF PATHOLOGY AND GENOMIC MEDICINE [address] [place] [address] Urine culture (03/08/2017 11:36 AM)Only the most recent of3 resultswithin the time period is included. Component Value Ref Range Urine culture SEE COMMENTComment: Bacteriuria screen negative. Specimen Performing Laboratory [facility] DEPARTMENT OF PATHOLOGY AND GENOMIC MEDICINE [address] [place] [address] XR Chest 2 Vw (02/24/2017 4:26 PM)Only the most recent of2 resultswithin the time period is included. Specimen Performing Laboratory [facility] [address] [place] [address] Narrative Examination:XR CHEST 2 VW Clinical History: Fever Comparison: January 02, 2017 Technique: Frontal and lateral views of the chest Impression: No consolidation or pleural effusion. New or increased subtle reticulonodular prominence in the lung bases may be infectious such as bronchiolitis. The heart is normal in size. Bones are unremarkable. [facility]-[id number] Procedure Note Interface, Radiology Results Incoming - 02/24/2017 4:32 PM [employer] Examination: XR CHEST 2 VW Clinical History: Fever Comparison: January 02, 2017 Technique: Frontal and lateral views of the chest Impression: No consolidation or pleural effusion. New or increased subtle reticulonodular prominence in the lung bases may be infectious such as bronchiolitis. The heart is normal in size. Bones are unremarkable. [facility]-[id number] Vancomycin level, trough (02/21/2017 6:00 AM) Component Value Ref Range Vancomycin, trough 11.0 10.0 - 20.0 ug/mL Comment: Therapeutic Ranges: Peak 30.0 - 40.0 ug/mL Anvbaw50.0 - 20.0 ug/mL Specimen Performing Laboratory Serum [facility] DEPARTMENT OF PATHOLOGY AND GENOMIC MEDICINE [address] [place] [address] Urine drugs of abuse screen (02/20/2017 8:05 [...] Comment: Drug screen minimum concentration of detectability Tclkucvomgmm9948 ng/mL Barbiturates 200 ng/mL Qumzcpshljshgku985 ng/mL Cswxjjs858 ng/mL Mkmdkruis731 ng/mL Sqtnxgn416 ng/mL Zxdztvsby625 ng/mL Phencyclidine 25 ng/mL Kmwmmgwyiukn33 ng/mL Lsaruwqrfj6225 ng/mL Negative test results indicates presumptive evidence of lack of clinically significant drug concentration in this urine specimen. Positive test results are presumptive evidence of clinically significant drug concentration in this urine specimen. Testing performed for medical purposes only. Specimen Performing Laboratory Urine [facility] DEPARTMENT OF PATHOLOGY AND GENOMIC MEDICINE [address] [place] [address] GGT (02/20/2017 7:24 AM) Component Value Ref Range GGT 123 (H) 0 - 59 U/L Specimen Performing Laboratory Plasma specimen [facility] DEPARTMENT OF PATHOLOGY AND GENOMIC MEDICINE [address] [place] [address] Abdomen Pelvis W Contrast (02/20/2017 1:30 AM) Specimen Performing Laboratory [facility] [address] [place] [address] ABDOMEN PELVIS W CONTRAST CLINICAL [...] wall thickening, without CT evidence of cholelithiasis. [facility]-[id number] Procedure Note Hm Interface, Radiology Results Incoming - 02/20/2017 1:41 [address] [employer] CT ABDOMEN PELVIS W CONTRAST CLINICAL INDICATION: [...] wall thickening, without CT evidence of cholelithiasis. [facility]-[id number] Ammonia level (02/20/2017 1:13 AM) Component Value Ref Range Ammonia 43 16 - 60 umol/L Specimen Performing Laboratory Blood [facility] DEPARTMENT OF PATHOLOGY AND GENOMIC MEDICINE [address] [place] [address] Lactic acid level (02/20/2017 1:10 AM)Only the most recent of5 resultswithin the time period is included. Component Value Ref Range Lactic acid 2.2 0.5 - 2.2 mmol/L Specimen Performing Laboratory Blood [facility] DEPARTMENT OF PATHOLOGY AND [facility] MEDICINE [address] [place] [address] Bilirubin direct (02/20/2017 1:10 AM) Component Value Ref Range Bilirubin direct >10.0 (H) 0.0 - 0.3 mg/dL Specimen Performing Laboratory Blood [facility] DEPARTMENT OF PATHOLOGY AND [address] [address] Amylase level (02/20/2017 1:10 AM) Component Value Ref Range Amylase 28 28 - 100 U/L Specimen Performing Laboratory Blood [facility] DEPARTMENT OF PATHOLOGY AND [address] [address] Alpha fetoprotein (01/04/2017 5:30 AM) Component Value Ref Range Alpha fetoprotein 7.6 0.0 - 8.3 ng/mL Comment: The Sharif 8000 AFP immunoassay was used. Results obtained with different assay methods or kits should not be used interchangeably and may be different. Specimen Performing Laboratory Serum [facility] DEPARTMENT [place] [address] [place] Abdominal Doppler (01/03/2017 12:43 AM) Specimen Performing Laboratory [facility] [address] [place] [address] Narrative EXAMINATION:US ABDOMINAL DOPPLER CLINICAL HISTORY:Suspected vascular [...] at the midline could not be seen. [facility]-[id number] Procedure Note Interface, Radiology Results Incoming - [...] at the midline could not be seen. [facility]-[id number] US Abdomen Complete (01/03/2017 12:42 AM) Specimen Performing Laboratory [facility] [address] [place] [address] Narrative EXAM: US ABDOMEN COMPLETE CLINICAL DATA:CIRRHOSIS [...] ascites. PLEURAL EFFUSION:There are no pleural effusions. [facility]-[id number] Procedure Note Ean, Radiology Results Incoming - 01/03/2017 1:24 AM [...] PLEURAL EFFUSION: There are no pleural effusions. [facility]-[id number] after 2016 Insurance Payer Benefit Plan / Group Subscriber ID Type Phone Address BCBS BCBS CHOICE PPO/[employer] PPO xxxxxxxxxxxx PPO Guarantor Name Account Type Relation to Date of Phone Billing Patient Address PETER VELEZ Personal/Family Self 1980 Home: [facility] [address] [place] [phone] [place], [place] [id number]
--- NOTE | 2017-07-03 04:11 | EDPHYS ---
Physician Documentation [facility] Name: Peter Andrade Age: 37 yrs Sex: Male : 1980 Arrival Date: 07/03/2017 Time: 03:49 Bed 5 Private MD: Vince Campbell B ED Physician Felix Bennett HPI: 07/03 04:02 This 37 yrs old Male presents to ER via Ambulatory with complaints of Pain lio All Over. 04:02 This 37 yrs old Male presents to ER via Ambulatory with complaints of Pain lio All Over. 04:02 This 37 yrs old Male presents to ER via Ambulatory with complaints of Pain lio All Over. 04:02 The patient presents with abdominal pain in the upper abdomen. Onset: The lio symptoms/episode began/occurred 2 day(s) ago. more jaundice, malaise. The symptoms do not radiate. Onset: The symptoms/episode began/occurred 5 day(s) ago. Associated signs and symptoms: Pertinent positives: anorexia, nausea, palpitations, shortness of breath. The symptoms are described as crampy, steady. Modifying factors: The symptoms are alleviated by nothing, the symptoms are aggravated by alcohol, nothing. Severity of pain: At its worst the pain was moderate in the emergency department the pain is unchanged. Severity of symptoms: At their worst the symptoms were moderate in the emergency department the symptoms are worse mildly. The patient has experienced similar episodes in the past, several times. Historical: - Allergies: 04:02 Clindamycin; bp 04:02 vitamin K; bp - Home Meds: 04:02 spironolactone 100 mg Oral tab 1 tab once daily [Active]; Xifaxan 550 mg Oral tab 1 tab bp 2 times per day [Active]; Lasix 40 mg Oral tab 1 tab once daily [Active]; - PMHx: 04:02 Cirrhosis; etoh abuse; hyperbilirubinemia; liver failure; bp - Immunization history:: Adult Immunizations up to date. - Social history:: Smoking status: Patient/guardian denies using tobacco, Patient uses alcohol. - Family history:: not pertinent. ROS: 04:02 Constitutional: Negative for fever, chills, and weight loss, Eyes: Negative for injury, lio pain, redness, and discharge, ENT: Negative for injury, pain, and discharge, Neck: Negative for injury, pain, and swelling, Cardiovascular: Negative for chest pain, palpitations, and edema, Respiratory: Negative for shortness of breath, cough, wheezing, and pleuritic chest pain, Abdomen/GI: Negative for abdominal pain, nausea, vomiting, diarrhea, and constipation, Back: Negative for injury and pain, : Negative for injury, bleeding, discharge, and swelling, Neuro: Negative for headache, weakness, numbness, tingling, and seizure, Psych: Negative for depression, anxiety, suicide ideation, homicidal ideation, and hallucinations, Allergy/Immunology: Negative for hives, rash, and allergies, Endocrine: Negative for neck swelling, polydipsia, polyuria, polyphagia, and marked weight changes, Hematologic/Lymphatic: Negative for swollen nodes, abnormal bleeding, and unusual bruising. 04:02 MS/extremity: Positive for decreased range of motion, swelling, of the right leg and left leg. 04:02 Skin: Positive for jaundice. 04:02 Neuro: Negative for altered mental status, acute changes. Exam: 04:02 Head/Face: Normocephalic, atraumatic. ENT: Nares patent. No nasal discharge, no lio septal abnormalities noted. Tympanic membranes are normal and external auditory canals are clear. Oropharynx with no redness, swelling, or masses, exudates, or evidence of obstruction, uvula midline. Mucous membranes moist. Neck: Trachea midline, no thyromegaly or masses palpated, and no cervical lymphadenopathy. Supple, full range of motion without nuchal rigidity, or vertebral point tenderness. No Meningismus. Chest/axilla: Normal chest wall appearance and motion. Nontender with no deformity. No lesions are appreciated. Cardiovascular: Regular rate and rhythm with a normal S1 and S2. No gallops, murmurs, or rubs. Normal PMI, no JVD. No pulse deficits. Respiratory: Lungs have equal breath sounds bilaterally, clear to auscultation and percussion. No rales, rhonchi or wheezes noted. No increased work of breathing, no retractions or nasal flaring. Back: No spinal tenderness. No costovertebral tenderness. Full range of motion. Male : Normal genitalia with no discharge or lesions. Skin: Warm, dry with normal turgor. Normal color with no rashes, no lesions, and no evidence of cellulitis. 04:02 Constitutional: The patient appears lethargic, in obvious distress, mildly distressed. 04:02 Eyes: Sclera: icterus. 04:02 Cardiovascular: Rate: tachycardic, Rhythm: regular, Pulses: Pulses are 4+ in bilateral radial, brachial, femoral, popliteal, posterior tibial and and dorsalis pedis arteries.. 04:02 Abdomen/GI: Inspection: distension, Bowel sounds: normal, Palpation: nontender, mild abdominal tenderness, Liver: is firm, Hernia: not appreciated. Vital Signs: 04:02 BP 146 / 76; Pulse 98; Resp 16; Temp 98.7; Pulse Ox 96% on R/A; Weight 95.25 kg; Height bp 6 ft. 1 in. (185.42 cm); 05:30 BP 118 / 62; Pulse 83; Resp 14; Pulse Ox 94% ; bp 07:00 BP 120 / 64; Pulse 85; Resp 18; Pulse Ox 100% on R/A; hj 08:00 BP 124 / 65; Pulse 84; Resp 18; Pulse Ox 100% on R/A; hj 09:55 BP 118 / 72; Pulse 83; Resp 18; Temp 98.7(O); Pulse Ox 100% on R/A; hj 04:02 Body Mass Index 27.71 (95.25 kg, 185.42 cm) bp MDM: 03:52 Patient medically screened. [facility] 04:11 Data reviewed: vital signs, nurses notes, lab test result(s), EKG, radiologic studies, lio plain films. 07/03 04:00 Order name: Basic Metabolic Panel; Complete Time: 06:22 [facility] 07/03 04:00 Order name: BNP; Complete Time: 05:05 [facility] 07/03 04:00 Order name: CBC with Diff; Complete Time: 06:22 [facility] 07/03 04:00 Order name: Ckmb; Complete Time: 06:22 [facility] 07/03 04:00 Order name: CPK; Complete Time: 06:22 [facility] 07/03 04:00 Order name: LFT's; Complete Time: 06:22 [facility] 07/03 04:00 Order name: Magnesium; Complete Time: 06:22 [facility] 07/03 04:00 Order name: PT-INR; Complete Time: 04:47 [facility] 07/03 04:00 Order name: Ptt, Activated; Complete Time: 04:47 [facility] 07/03 04:00 Order name: Troponin (emerg Dept Use Only); Complete Time: 04:47 [facility] 07/03 04:00 Order name: AMMONIA; Complete Time: 04:47 [facility] 07/03 04:00 Order name: Blood Culture Adult (2) [facility] 07/03 04:00 Order name: Lipase; Complete Time: 06:22 [facility] 07/03 04:00 Order name: Type And Screen; Complete Time: 06:22 [facility] 07/03 04:00 Order name: XRAY Chest (1 view); Complete Time: 09:11 [facility] 07/03 04:00 Order name: Urine Culture [facility] 07/03 04:01 Order name: Acetaminophen; Complete Time: 06:22 [facility] 07/03 04:01 Order name: ETOH Level; Complete Time: 06:22 [facility] 07/03 04:01 Order name: Salicylate; Complete Time: 06:22 [facility] 07/03 04:01 Order name: Urine Drug Screen [facility] 07/03 04:18 Order name: Phosphorus; Complete Time: 06:22 EDMS 07/03 04:50 Order name: Manual Differential; Complete Time: 06:22 EDMS 07/03 09:37 Order name: Urine Dipstick--Ancillary (enter results) 07/03 04:00 Order name: EKG; Complete Time: 04:01 [facility] 07/03 04:00 Order name: Cardiac monitoring; Complete Time: 04:12 [facility] 07/03 04:00 Order name: EKG - Nurse/Tech; Complete Time: 04:09 [facility] 07/03 04:00 Order name: IV Saline Lock; Complete Time: 04:09 [facility] 07/03 04:00 Order name: Labs collected and sent; Complete Time: 04:10 [facility] 07/03 04:00 Order name: O2 Per Protocol; Complete Time: 04:10 [facility] 07/03 04:00 Order name: O2 Sat Monitoring; Complete Time: 04:10 [facility] 07/03 05:14 Order name: IV Saline Lock - Large Bore; Complete Time: 05:38 [facility] 07/03 08:51 Order name: Diet Heart Healthy; Complete Time: 08:52 hj Administered Medications: Discontinued: NS 0.9% 1000 ml IV at 75 ml/hr continuous 04:13 Not Given (Other Intervention Used): Rocephin - (cefTRIAXone) 1 grams IVPB once over 30 tl2 mins; (mix in 50 mL NS) 04:21 Drug: Rocephin 1 grams Route: IV; Rate: calculated rate; Site: right wrist; tl2 04:44 Follow up: IV Status: Completed infusion tl2 04:22 Drug: ProTONIX 40 mg Route: IVP; Site: right wrist; tl2 06:03 Follow up: Response: No adverse reaction bp 04:22 Drug: NS 0.9% 1000 ml Route: IV; Rate: 75 ml/hr; Site: right wrist; tl2 04:44 Drug: fentaNYL (PF) 25 mcg Route: IVP; Site: right wrist; tl2 05:22 Follow up: Response: Pain is decreased bp 04:44 Drug: Zofran 4 mg Route: IVP; Site: right wrist; tl2 05:22 Follow up: Response: No adverse reaction; Pain is decreased bp 05:13 Drug: Potassium Chloride 20 mEq Route: IV; Rate: per protocol; Site: right antecubital; bp 08:32 Follow up: IV Status: Completed infusion hj 05:15 Drug: NS 0.9% with KCl 20 mEq/L 1000 ml Route: IV; Rate: 100 ml/hr; Site: right bp antecubital; 08:32 Follow up: IV Status: Infusion continued hj 05:20 Drug: Magnesium Sulfate 2 grams Route: IVPB; Infused Over: 2 hrs; Site: right forearm; bp 08:32 Follow up: IV Status: Completed infusion hj 05:20 Drug: Vitamin K1 10 mg Route: Sub-Q; Site: right upper arm; bp 06:03 Follow up: Response: No adverse reaction bp 08:21 Drug: fentaNYL (PF) 25 mcg Route: IVP; Site: right forearm; hj 08:31 Follow up: Response: No adverse reaction hj 08:31 Follow up: Response: Pain is decreased hj 08:29 Drug: Flagyl 500 mg Volume: 100 ml; Route: IVPB; Rate: 200 ml/hr; Infused Over: 30 hj mins; Site: right antecubital; 08:50 Follow up: IV Status: Completed infusion hj 08:29 Drug: Potassium Chloride 20 mEq Route: IV; Rate: per protocol; Site: right antecubital; hj 09:02 Follow up: IV Status: Infusion continued hj 08:30 Drug: Thiamine 100 mg Route: IV; Rate: bolus; Site: right antecubital; hj 08:50 Follow up: IV Status: Completed infusion hj Disposition: 07/03/17 04:10 Transfer ordered to [facility]. Diagnosis are Alcoholic cirrhosis of liver, Alcoholic cirrhosis of liver with ascites, Weakness, Hypokalemia, Hypomagnesemia, Anemia, unspecified, Coagulation defect, unspecified - acute liver failure, Cardiomegaly, Elevated white blood cell count, Bandemia. - Reason for transfer: Higher level of care. - Accepting physician is dr nita del valle. - Condition is Serious. - Problem is new. - Symptoms have improved. Signatures: Dispatcher [employer] EDMS Felix Bennett MD MD cha Roszak, Josh, SENDY PA [id number] Orlando Mckee, RN RN hj Raegan García, RN RN tl2 Will Cerrato RN RN bp Corrections: (The following items were deleted from the chart) 04:17 04:10 PHOSPHORUS+C.LAB.BRZ ordered. [facility] EDSC 05:13 04:10 07/03/2017 04:10 Transfer ordered to [facility]. Diagnosis is lio Alcoholic cirrhosis of liver; Alcoholic cirrhosis of liver with ascites; Weakness. Reason for transfer: Higher level of care. Accepting physician is dr nita del valle. Condition is Serious. Problem is new. Symptoms have improved. [facility] 05:15 05:13 07/03/2017 04:10 Transfer ordered to [facility]. Diagnosis is lio Alcoholic cirrhosis of liver; Alcoholic cirrhosis of liver with ascites; Weakness; Hypokalemia; Hypomagnesemia; Anemia, unspecified; Coagulation defect, unspecified - acute liver failure. Reason for transfer: Higher level of care. Accepting physician is dr nita del valle. Condition is Serious. Problem is new. Symptoms have improved. [facility] 08:29 05:15 07/03/2017 04:10 Transfer ordered to [facility]. Diagnosis is lio Alcoholic cirrhosis of liver; Alcoholic cirrhosis of liver with ascites; Weakness; Hypokalemia; Hypomagnesemia; Anemia, unspecified; Coagulation defect, unspecified - acute liver failure; Cardiomegaly. Reason for transfer: Higher level of care. Accepting physician is dr nita del valle. Condition is Serious. Problem is new. Symptoms have improved. [facility] 10:23 08:29 07/03/2017 04:10 Transfer ordered to [facility]. Diagnosis is hj Alcoholic cirrhosis of liver; Alcoholic cirrhosis of liver with ascites; Weakness; Hypokalemia; Hypomagnesemia; Anemia, unspecified; Coagulation defect, unspecified - acute liver failure; Cardiomegaly; Elevated white blood cell count; Bandemia. Reason for transfer: Higher level of care. Accepting physician is dr nita del valle. Condition is Serious. Problem is new. Symptoms have improved. lio
--- NOTE | 2017-07-03 04:11 | ER ---
Nurse's Notes [facility] Name: Peter Andrade Age: 37 yrs Sex: Male : 1980 Arrival Date: 07/03/2017 Time: 03:49 Bed 5 Private MD: Vince Campbell B Diagnosis: Alcoholic cirrhosis of liver;Alcoholic cirrhosis of liver with ascites;Weakness;Hypokalemia;Hypomagnesemia;Anemia, unspecified;Coagulation defect, unspecified-acute liver failure;Cardiomegaly;Elevated white blood cell count;Bandemia Presentation: 07/03 03:59 Presenting complaint: Patient states: I'M HURTING AND SWELLING ALL OVER. Transition of bp care: patient was not received from another setting of care. Onset of symptoms is unknown. Initial Sepsis Screen: Does the patient meet any 2 criteria? No. Patient's initial sepsis screen is negative. Does the patient have a suspected source of infection? No. Patient's initial sepsis screen is negative. Care prior to arrival: None. 03:59 Method Of Arrival: Ambulatory bp 03:59 Acuity: MARY 3 bp Triage Assessment: 04:02 General: Appears distressed, uncomfortable, Behavior is cooperative, appropriate for bp age, listless. Pain: Complains of pain in GENERALIZED. EENT: Sclera/Cornea JAUNDICED. Neuro: Level of Consciousness is awake, alert, obeys commands, Oriented to person, place, time, situation, Appropriate for age. Cardiovascular: Rhythm is sinus rhythm. Respiratory: Airway is patent Respiratory effort is even, unlabored, Respiratory pattern is regular, symmetrical. GI: Abdomen is distended. : No signs and/or symptoms were reported regarding the genitourinary system. Derm: Skin is jaundiced. Musculoskeletal: Circulation, motion, and sensation intact. Range of motion: intact in all extremities. Historical: - Allergies: 04:02 Clindamycin; bp 04:02 vitamin K; bp - Home Meds: 04:02 spironolactone 100 mg Oral tab 1 tab once daily [Active]; Xifaxan 550 mg Oral tab 1 tab bp 2 times per day [Active]; Lasix 40 mg Oral tab 1 tab once daily [Active]; - PMHx: 04:02 Cirrhosis; etoh abuse; hyperbilirubinemia; liver failure; bp - Immunization history:: Adult Immunizations up to date. - Social history:: Smoking status: Patient/guardian denies using tobacco, Patient uses alcohol. - Family history:: not pertinent. Screenin:12 Abuse screen: Denies threats or abuse. Denies injuries from another. Nutritional bp screening: No deficits noted. Tuberculosis screening: No symptoms or risk factors identified. 07:00 Fall Risk None identified. hj Assessment: 04:08 General: SEE TRIAGE NOTE. bp 05:00 Reassessment: PT RESTING QUIETLY, VS STABLE ON MONITOR. TRANSFER IN PROCESS. bp 06:00 Reassessment: Patient and/or family updated on plan of care and expected duration. Pain hj level reassessed. Patient is alert, oriented x 3, equal unlabored respirations, skin warm/dry/pink. 07:00 Reassessment: Patient and/or family updated on plan of care and expected duration. Pain hj level reassessed. Patient is alert, oriented x 3, equal unlabored respirations, skin warm/dry/pink. awaiting results and POC; transfer update;. 08:00 Reassessment: Patient and/or family updated on plan of care and expected duration. Pain hj level reassessed. Patient is alert, oriented x 3, equal unlabored respirations, skin warm/dry/pink. for transfer to [facility];. 09:30 Reassessment: Patient and/or family updated on plan of care and expected duration. Pain hj level reassessed. Patient is alert, oriented x 3, equal unlabored respirations, skin warm/dry/pink. report called to Ricardo Powers RN;. Vital Signs: 04:02 BP 146 / 76; Pulse 98; Resp 16; Temp 98.7; Pulse Ox 96% on R/A; Weight 95.25 kg; Height bp 6 ft. 1 in. (185.42 cm); 05:30 BP 118 / 62; Pulse 83; Resp 14; Pulse Ox 94% ; bp 07:00 BP 120 / 64; Pulse 85; Resp 18; Pulse Ox 100% on R/A; hj 08:00 BP 124 / 65; Pulse 84; Resp 18; Pulse Ox 100% on R/A; hj 09:55 BP 118 / 72; Pulse 83; Resp 18; Temp 98.7(O); Pulse Ox 100% on R/A; hj 04:02 Body Mass Index 27.71 (95.25 kg, 185.42 cm) bp ED Course: 03:49 Patient arrived in ED. am2 03:49 Vince Campbell MD is Private Physician. am2 03:50 Will Cerrato RN is Primary Nurse. bp 03:52 Felix Bennett MD is Attending Physician. lio 04:00 Triage completed. bp 04:00 Inserted saline lock: 20 gauge in right wrist, using aseptic technique. Blood collected.bp 04:07 Arm band placed on. bp 04:12 Patient has correct armband on for positive identification. Bed in low position. Call bp light in reach. Side rails up X2. Adult w/ patient. 04:19 X-ray completed. Portable x-ray completed in exam room. Patient tolerated procedure kw well. 04:19 XRAY Chest (1 view) In Process Unspecified. EDMS 05:39 Inserted saline lock: 18 gauge in right forearm, using aseptic technique. bp 10:22 No provider procedures requiring assistance completed. Patient transferred, IV remains hj in place. intact. Administered Medications: Discontinued: NS 0.9% 1000 ml IV at 75 ml/hr continuous 04:13 Not Given (Other Intervention Used): Rocephin - (cefTRIAXone) 1 grams IVPB once over 30 tl2 mins; (mix in 50 mL NS) 04:21 Drug: Rocephin 1 grams Route: IV; Rate: calculated rate; Site: right wrist; tl2 04:44 Follow up: IV Status: Completed infusion tl2 04:22 Drug: ProTONIX 40 mg Route: IVP; Site: right wrist; tl2 06:03 Follow up: Response: No adverse reaction bp 04:22 Drug: NS 0.9% 1000 ml Route: IV; Rate: 75 ml/hr; Site: right wrist; tl2 04:44 Drug: fentaNYL (PF) 25 mcg Route: IVP; Site: right wrist; tl2 05:22 Follow up: Response: Pain is decreased bp 04:44 Drug: Zofran 4 mg Route: IVP; Site: right wrist; tl2 05:22 Follow up: Response: No adverse reaction; Pain is decreased bp 05:13 Drug: Potassium Chloride 20 mEq Route: IV; Rate: per protocol; Site: right antecubital; bp 08:32 Follow up: IV Status: Completed infusion hj 05:15 Drug: NS 0.9% with KCl 20 mEq/L 1000 ml Route: IV; Rate: 100 ml/hr; Site: right bp antecubital; 08:32 Follow up: IV Status: Infusion continued hj 05:20 Drug: Magnesium Sulfate 2 grams Route: IVPB; Infused Over: 2 hrs; Site: right forearm; bp 08:32 Follow up: IV Status: Completed infusion hj 05:20 Drug: Vitamin K1 10 mg Route: Sub-Q; Site: right upper arm; bp 06:03 Follow up: Response: No adverse reaction bp 08:21 Drug: fentaNYL (PF) 25 mcg Route: IVP; Site: right forearm; hj 08:31 Follow up: Response: No adverse reaction hj 08:31 Follow up: Response: Pain is decreased hj 08:29 Drug: Flagyl 500 mg Volume: 100 ml; Route: IVPB; Rate: 200 ml/hr; Infused Over: 30 hj mins; Site: right antecubital; 08:50 Follow up: IV Status: Completed infusion hj 08:29 Drug: Potassium Chloride 20 mEq Route: IV; Rate: per protocol; Site: right antecubital; hj 09:02 Follow up: IV Status: Infusion continued hj 08:30 Drug: Thiamine 100 mg Route: IV; Rate: bolus; Site: right antecubital; hj 08:50 Follow up: IV Status: Completed infusion hj Outcome: 04:10 ER care complete, transfer ordered by MD. vaca 10:22 Transferred by ground EMS to [facility], Transfer form completed. X-rays hj sent w/ patient. 10:22 Condition: stable 10:22 Instructed on the need for transfer, Demonstrated understanding of instructions. 10:23 Patient left the ED. Signatures: Dispatcher [employer] EDFelix David MD MD cha Whitley, Kimberlee kw Joaquin, Henry RN RN Raegan Humphrey RN RN tl2 Sanjuana Smith Brian RN RN bp
[2017-07-03] MEDS ORDERED: PANTOPRAZOLE 40 MG INJ ONE (04:14)
[2017-07-03] MEDS ORDERED: CEFTRIAXONE/SWI 1gm 1 GM/10 ML SYR ONE (04:14)
[2017-07-03] MEDS ORDERED: NA CHLORIDE 0.9% 1,000 ML ONE (04:14)
[2017-07-03 04:30] LABS: Hematocrit 28.6 % (39.6-49.0); MCH 36.4 pg (27.0-35.0); MCV 103.8 fL (80-100); MPV 9.6 fL (7.6-11.3); RBC Red Blood Cell Count 2.76 M/uL (4.33-5.43)
[2017-07-03] MEDS ORDERED: FENTANYL CITR 100 MCG/2 ML ONE ×2 (04:33→08:18)
[2017-07-03 04:34] LABS: Protime INR 2.66
[2017-07-03] MEDS ORDERED: ONDANSETRON 4 MG/2 ML VIAL ONE (04:38)
[2017-07-03 04:53] LABS: CKMB Creatine Kinase MB 2.7 ng/ml (0.3-4.0)
[2017-07-03 05:04] LABS: ALT/SGPT 40 IU/L (10-60); AST/SGOT 108 IU/L (10-42); Albumin 2.7 g/dL (3.2-5.5); Alkaline Phosphatase 163 IU/L (42-121); BUN Blood Urea Nitrogen 16 mg/dL (6-20); Bicarbonate 25 mEq/L (21-31); Creatine Phosphokinase 308 IU/L (22-269); Glucose Level 187 mg/dL (65-120); Lipase 72 U/L (22-51); Magnesium 1.5 mg/dL (1.8-2.5); Phosphorus 3.3 mg/dL (2.5-4.3); Protein, Total 6.7 g/dL (6.0-8.3); Salicylates Level 13.7 mg/dl (<30); Sodium Level 127 mEq/L (135-145)
[2017-07-03 05:06] LABS: Alcohol Serum/Plasma < 10 mg/dl; Bilirubin Total 31.4 mg/dL (0.3-1.2); Potassium 2.8 mEq/L (3.6-5.0)
[2017-07-03] MEDS ORDERED: KCL 20 MEQ/100 mL IVPB 20 MEQ/100 ML BAG IV ONE ×2 (05:09→08:37)
[2017-07-03] MEDS ORDERED: NS KCL 20MEQ 1,000 ML IV ONE (05:16)
[2017-07-03] MEDS ORDERED: Magnesium Sulfate 2gm IVPB 2 G/50 ML BAG IV ONE (05:25)
[2017-07-03] MEDS ORDERED: VITAMIN K (ADULT) 10 MG/ML ONE (05:25)
[2017-07-03 05:34] LABS: Bilirubin Direct 17.2 mg/dL (0-0.2)
[2017-07-03 06:06] LABS: Blood Morphology Comment NOTED (NOT SEEN); Platelet Estimate ADEQ; Target Cells 3+
--- NOTE | 2017-07-03 06:39 | EKG ---
Test Date: 2017-07-03 Test Time: 04:03:04 Investigator Welfare: YEYO MEASUREMENT RESULTS: Intervals: Rate: 95 AL: 132 QRSD: 90 QT: 400 QTc: 502 Atkinson: P: 66 AL: 132 QRS: 48 T: 59 INTERPRETIVE STATEMENTS: Normal sinus rhythm Possible Left atrial enlargement Prolonged QT Abnormal ECG Compared to ECG 03/08/2017 01:16:40 Prolonged QT interval now present Electronically Signed On 07-03-17 06:38:51 CDT by Maxwell Darling
[2017-07-03] MEDS ORDERED: THIAMINE 200 MG/2 ML INJ ONE (08:37)
[2017-07-03] MEDS ORDERED: METRONIDAZOLE 500mg IVPB 500 MG/100 ML BAG IV ONE (08:37)
--- NOTE | 2017-07-03 08:50 | RAD REPORT ---
EXAM DESCRIPTION: RAD - Chest Single View - 07/03/2017 4:22 am CLINICAL HISTORY: Chest pain. COMPARISON: 03/08/2017 FINDINGS: Portable technique limits examination quality. The lungs are grossly clear. The heart is mildly prominent in size. No displaced fractures. IMPRESSION: No acute intrathoracic process suspected.
[2017-07-03 09:43] LABS: Barbiturates NEGATIVE; Benzodiazepines NEGATIVE; Cocaine NEGATIVE; METHAMPHETAM NEGATIVE; Opiates NEGATIVE; Phencyclidine NEGATIVE; THC Cannibis POSITIVE
[2017-07-03 10:30] VITALS: TEMP 98.7
[2017-07-03 10:32] VITALS: O2SAT 100
[2017-07-03 10:35] VITALS: BP 118/72
[2017-07-03 10:40] LABS: Urine Blood NEGATIVE (NEG); Urine Glucose TRACE (NEG); Urine Protein TRACE (NEG)
== END 2017-07-03 10:23 | disposition short-term general hospital (02) ==
LOC: ER 03:49
DX: K70.31 Alcoholic cirrhosis of liver with ascites (principal); R53.1 Weakness; E87.6 Hypokalemia; E83.42 Hypomagnesemia; D64.9 Anemia, unspecified; I51.7 Cardiomegaly; D72.825 Bandemia; K72.90 Hepatic failure, unspecified without coma; Z88.3 Allergy status to other anti-infective agents; Z91.048 Other nonmedicinal substance allergy status
CPT/HCPCS: 36415; 71045; 80048; 80076; 80307; 80320; 80329; 81003; 82140; 82550; 82553; 83690; 83735; 83880; 84100; 84484; 85025; 85610; 85730; 86850; 86900; 86901; 87040; 87086; 87088; 93005; 96372; 99285; C9113; J0696; J2405; J3010; J3411; J3430; J3475; J7030